=== PATIENT | female | born 1955 | race Caucasian/White ===

== ENCOUNTER 2017-03-14 12:17 | Day surgery (SDC) | payer BC ==
[2017-03-10 14:45] VITALS: BMI 40.8
[~2017-03-14 12:17] MED LIST: DEXAMETHASONE SOD PHOSPHATE 10 MG/ML 1 ML VIAL IV ONE; LACTATED RINGERS 1,000 ML IV SCH; MIDAZOLAM 2 MG/2 ML VIAL IV PRN; ONDANSETRON 4 MG/2 ML VIAL IVP ONE; SCOPOLAMINE 1.5MG/72HR PATCH TRANSDERM ONE; ceFAZolin 2 GM in SODIUM CHLORIDE 0.9% 100 ML IVPB ONE
[2017-03-14 12:43] VITALS: RESP 16
[2017-03-14] MEDS ORDERED: LIDOCAINE 1% 20 ML VIAL (10MG/ML) FOR IV START INTRADERMA ONE (12:55)
[2017-03-14] MEDS ORDERED: HYDROmorphone 1 MG/ML 1 ML SYRINGE IVP PRN ×2 (13:34)
[2017-03-14] MEDS ORDERED: HYDROcodone/APAP 5-325MG 1 EACH TAB PO PRN ×2 (13:34)
[2017-03-14] MEDS ORDERED: fentaNYL (PF) 50 MCG/ML 2 ML AMP ONE (13:43)
[2017-03-14] MEDS ORDERED: HYDROmorphone (PF) 1 MG/ML ONE (13:43)
[2017-03-14] MEDS ORDERED: LIDOCAINE 1% INJ 10MG/ML (20 ML MDV) ONE (13:43)
[2017-03-14] MEDS ORDERED: KETOROLAC 30 MG/ML 1 ML VIAL ONE (13:43)
[2017-03-14] MEDS ORDERED: MIDAZOLAM 2 MG/2 ML VIAL ONE (13:43)
[2017-03-14] MEDS ORDERED: PROPOFOL 10 MG/ML 20 ML VIAL IV ONE (13:43)
[2017-03-14] MEDS ORDERED: ceFAZolin 1,000 MG in SODIUM CHLORIDE 0.9% 1,000 ML IRRIGATION ONE (13:59)
[2017-03-14] MEDS ORDERED: BUPIVACAINE (PF) 0.5% 30 ML VIAL SQ ONE ×2 (14:03→14:21)
[2017-03-14] MEDS ORDERED: LACTATED RINGERS 1,000 ML IV ONE (14:18)
--- NOTE | 2017-03-14 14:28 | FL ---
Fluoroscopy HISTORY: Bone spur removal 2 seconds fluoroscopy time supplied to the referring clinician. 2 intraoperative C-arm images docume nt the procedure. See dictated report from orthopedic surgery.
[2017-03-14 14:39] VITALS: TEMP 95
--- NOTE | 2017-03-14 14:48 | P.OP ---
Date of Procedure: 03/14/17 Preoperative Diagnosis: Left hallux rigidus Postoperative Diagnosis: Left hallux rigidus Procedure(s) Performed: Left first MTP cheilectomy Implants: Anesthesia: JAK Surgeon: Galo Peter Estimated Blood Loss (ml): 5 IV fluids (ml): 900 Pathology: none sent Condition: stable Disposition: PACU Indications for Procedure: The patient is a previously healthy 61-year-old female with a long-standing history of problems in her left big toe. She saw me in the office to discuss treatment. Clinically she had a large dorsal osteophyte off of the distal first metatarsal and pain only with passive dorsiflexion and plantarflexion. She had no pain in the mid range of motion. We discussed continued conservative treatment versus surgery with a cheilectomy. The patient requested surgery. My recommendation is to perform a cheilectomy. We discussed the potential risks and competition of surgery including but not limited to risk of anesthesia, risk of superficial infection, risk of deep infection, risk of delayed wound healing, risk of damage to local sensory nerves resulting in temporary or permanent numbness, risk of intraoperative or postoperative fracture, risk of progression of arthritis, risk of stiffness, risk of continued pain, risk of chronic swelling, risk of need for further surgery, and generalized dissatisfaction with surgery and possibly the need for a fusion down the road. We also discussed potential complication of DVT or fatal PE. The patient understands these potential complications and provided her verbal and written consent to go forward with surgery. Operative Findings: Description of Procedure: The patient was met in preoperative holding and the correct left leg was marked with my initials. Every the consent form with the patient and her . The patient was then brought back to the operating room by anesthesia. She's position on the operating table and a general anesthetic was administered. A tourniquet was applied proximal aspect the left thigh. The patient's left leg was then prepped and draped in the standard sterile fashion. Prior to starting surgery timeout was performed identifying the correct patient, operative extremity, and procedure. The patient's leg was then elevated, exsanguinated with an Esmarch bandage and the tourniquet was inflated to 250 mmHg. Next I began by marking out a longitudinal incision centered over the dorsal aspect of the first MTP joint. Skin incision was made with 15 blade scalpel dissection was carried down carefully to the EHL tendon sheath. The child tendon sheath was incised and the EHL was retracted laterally. The capsule was incised longitudinally in line with the skin incision. I circumferentially exposed the MTP joint. On inspection of the joint there was a large dorsal osteophyte off of the first metatarsal head. There are also multiple loose bodies within the joint. Modified baby Hohmann retractors were placed exposing the joint and a microsagittal saw was used to remove the dorsal 25% of the first metatarsal head and the dorsal osteophyte. A Andry was used to remove peripheral osteophytes. The first metatarsal head was smoothed down with a rasp. On inspection of the joint there was full-thickness cartilage loss of the dorsal half of the first metatarsal head. C-arm was then brought in to verify decompression of the dorsal osteophyte. The wound was then copiously irrigated. The capsule was closed with a running 0 Vicryl stitch. The deep subcu was reapproximated using 3-0 Monocryl. The skin was closed using 3-0 nylon horizontal mattress stitches. I verified that all instrument, sponge, and sharp counts were correct. Brown Jhon and stretchy Steri-Strips were placed between the incisions and a sterile dressing consisting of Betadine soaked Adaptic and 4 x 4's placed. Prior to placing the dressing 10 mL's of half percent Marcaine was injected around the incision. The drapes were taken down and the patient was placed in a postoperative shoe. She was brought to PACU having tied of the procedure well. Plan: The patient discharged home as an outpatient. She can change her dressing in 2 days. She is to heel weight-bear only in a postoperative shoe
--- NOTE | 2017-03-14 14:51 | XR ---
Fluoroscopy HISTORY: Bone spur removal 2 seconds fluoroscopy time supplied to the referring clinician. 2 intraoperative C-arm images docume nt the procedure, paper films scanned into the documents section. Frontal and lateral fluoroscopic im ages were obtained intraoperatively during a bone spur removal. See dictated report from orthopedic s urgery.
[2017-03-14] MEDS: HYDROmorphone 1 MG/ML 1 ML SYRINGE IVP PRN ×2 (15:00→15:05)
[2017-03-14] MEDS ORDERED: ONDANSETRON 4 MG/2 ML VIAL IVP ONE (15:11)
[2017-03-14 16:17] VITALS: BP 122/76; PULSE 66
== END 2017-03-14 17:31 | disposition home or self-care (01) ==
LOC: OR 12:17
PROVIDERS: ATTEND Orthopaedic Surgery
DX: M20.22 Hallux rigidus, left foot (principal); I10 Essential (primary) hypertension; E78.5 Hyperlipidemia, unspecified; E03.9 Hypothyroidism, unspecified; J45.909 Unspecified asthma, uncomplicated; F32.9 Major depressive disorder, single episode, unspecified; Z88.2 Allergy status to sulfonamides; Z87.891 Personal history of nicotine dependence; Z79.51 Long term (current) use of inhaled steroids; Z79.899 Other long term (current) drug therapy; Z90.710 Acquired absence of both cervix and uterus
CPT/HCPCS: 73620; 28289; J2250; J1100; J0690 ×2; J2405; J2001; J3010; J1885; J1170; J2704

== ENCOUNTER → 2017-07-22 | Outpatient (CLI) | payer BC ==
--- NOTE | 2017-07-22 22:36 | CT ---
EXAMINATION TYPE: CT abdomen w con DATE OF EXAM: 07/22/2017 HISTORY: Lump and swelling to epigastric area. CT DLP: 1209.7mGycm Automated Exposure Control for Dose Reduction was Utilized. CONTRAST: CT scan of the abdomen is performed with oral and with IV Contrast, patient injected with 100 mL of O mnipaque 300. COMPARISON: CT abdomen and pelvis August 07, 2006. Complete abdominal ultrasound July 11, 2017. FINDINGS: LUNG BASES: No significant abnormality is appreciated. LIVER/GB: Liver is diffusely low-density consistent with fatty infiltration which correlates with rec ent ultrasound. Contracted gallbladder is seen. PANCREAS: No significant abnormality is seen. SPLEEN: No significant abnormality is seen. ADRENALS: No significant abnormality is seen. KIDNEYS: No significant abnormality is seen. BOWEL: Oral contrast does not reach colonic level. There is no suspicious small or large bowel dilata tion. LYMPH NODES: No greater than 1cm abdominal lymph nodes are appreciated. OSSEOUS STRUCTURES: There is prominent Schmorl node superior L1 endplate. OTHER: No significant additional abnormality is seen. IMPRESSION: No ascites is seen. No suspicious intra-abdominal mass or adenopathy is identified.
== END | disposition home or self-care (01) ==
LOC: RADCTMAIN 18:49
PROVIDERS: ATTEND Surgery
DX: R10.13 Epigastric pain (principal)
CPT/HCPCS: 74160; Q9967

== ENCOUNTER 2017-09-19 12:27 | Day surgery (SDC) | payer BC ==
[2017-09-16 11:50] VITALS: BMI 42.3
[~2017-09-19 12:27] MED LIST changes: -DEXAMETHASONE SOD PHOSPHATE 10 MG/ML 1 ML VIAL IV ONE; -MIDAZOLAM 2 MG/2 ML VIAL IV PRN; -ONDANSETRON 4 MG/2 ML VIAL IVP ONE; -SCOPOLAMINE 1.5MG/72HR PATCH TRANSDERM ONE; -ceFAZolin 2 GM in SODIUM CHLORIDE 0.9% 100 ML IVPB ONE
[2017-09-19 12:57] VITALS: RESP 16; TEMP 96.8
[2017-09-19] MEDS ORDERED: PROPOFOL 10 MG/ML 20 ML VIAL IV ONE (14:35)
[2017-09-19] MEDS ORDERED: LIDOCAINE 1% INJ 10MG/ML (20 ML MDV) ONE (14:35)
--- NOTE | 2017-09-19 14:40 | P.GSHP ---
History of Present Illness H&P Date: 09/19/17 Chief Complaint: Abdominal pain Patient here today for upper endoscopy. Has had complaints of epigastric and left subxiphoid pain off and on. Some reflux and nausea times as well. Recent CAT scan showed no definite abnormalities with the exception of a bifurcated xiphoid Past Medical History Past Medical History: Asthma, Hyperlipidemia, Hypertension, Thyroid Disorder Additional Past Medical History / Comment(s): migraines, varicose veins History of Any Multi-Drug Resistant Organisms: None Reported Past Surgical History: Adenoidectomy, Section, Hysterectomy, Orthopedic Surgery, Tonsillectomy Additional Past Surgical History / Comment(s): Exploratory laparotomy/xiomara oophorectomy, trigger thumb-rt hand, temporal biopsy, Past Anesthesia/Blood Transfusion Reactions: Motion Sickness Additional Past Anesthesia/Blood Transfusion Reaction / Comment(s): . Smoking Status: Former smoker - Past Family History Father Family Medical History: Coronary Artery Disease (CAD), Myocardial Infarction (HI ) Additional Family Medical History / Comment(s): Father of a HI Mother Family Medical History: No Reported History Additional Family Medical History / Comment(s): Mother is . Medications and Allergies Home Medications Medication Instructions Recorded Confirmed Type Budesonide/Formoterol Fumarate 2 puff INHALATION BID 03/10/17 09/19/17 History [Symbicort 80-4.5 Mcg Inhaler] Cetirizine HCl [Zyrtec] 10 mg PO DAILY 03/10/17 09/19/17 History Levothyroxine Sodium [Synthroid] 100 mcg PO QAM 03/10/17 09/16/17 History Montelukast [Singulair] 10 mg PO HS 03/10/17 09/19/17 History Naproxen [Naprosyn] 500 mg PO Q12HR 03/10/17 09/16/17 History amLODIPine BESYLATE/BENAZEPRIL 1 cap PO QAM 03/10/17 09/16/17 History [Lotrel 5-10 mg Capsule] Allergies Allergy/AdvReac Type Severity Reaction Status Date / Time sulfamethoxazole Allergy Rash/Hives Verified 09/19/17 12:51 [From Bactrim] trimethoprim [From Bactrim] Allergy Rash/Hives Verified 09/19/17 12:51 Surgical - Exam Vital Signs Temp Pulse Resp BP Pulse Ox 96.8 F L 82 16 126/71 98 09/19/17 12:56 09/19/17 12:56 09/19/17 12:56 09/19/17 12:56 09/19/17 12:56 Physical exam: General: Well-developed, well-nourished HEENT: Normocephalic, sclerae nonicteric Abdomen: Nontender, nondistended Extremities: No edema Neuro: Alert and oriented Assessment and Plan (1) Epigastric abdominal pain Narrative/Plan: Will proceed with upper endoscopy at this time. Current Visit: Yes Status: Acute Code(s): R10.13 - EPIGASTRIC PAIN SNOMED Code(s): 28568721
--- NOTE | 2017-09-19 14:49 | P.PCN ---
Date of Procedure: 09/19/17 Procedure(s) Performed: Preoperative Dx: Abdominal pain Postoperative Dx: Duodenitis with small ulceration, gastritis with small erosions Procedure: EGD with Bx Anesthesia: Sedation Endoscopist: Dr. Bruce Specimens: Duodenum, antrum Endoscopic Procedure: The patient was on the endoscopy table in the left decubitus position. The Olympus gastroscope was inserted into the oropharynx and passed under direct visualization to the region of the third portion of the duodenum. From that point the scope was slowly withdrawn inspecting all surfaces carefully. There was mild duodenitis present. Between the first and second portion of the duodenum a small superficial ulceration was identified. The pylorus was widely patent. There was diffuse gastritis present with small erosions. Retroflexion revealed a normal hiatus. The esophagus was then carefully examined. There were no neoplastic inflammatory or polypoid lesions throughout the visualized esophagus. The patient was then taken to the recovery room in stable condition per anesthesia guidelines. Recommendations: Await biopsy results. Begin antiacid therapy. Minimize NSAID use
[2017-09-19 15:07] VITALS: BP 105/58; PULSE 72
== END 2017-09-19 15:22 | disposition home or self-care (01) ==
LOC: ORWHC2ENDO 12:27
PROVIDERS: ATTEND Surgery
DX: K29.80 Duodenitis without bleeding (principal); K29.50 Unspecified chronic gastritis without bleeding; K25.9 Gastric ulcer, unspecified as acute or chronic, without hemorrhage or perforation; K26.9 Duodenal ulcer, unspecified as acute or chronic, without hemorrhage or perforation; J45.909 Unspecified asthma, uncomplicated; E78.5 Hyperlipidemia, unspecified; I10 Essential (primary) hypertension; E07.9 Disorder of thyroid, unspecified; G43.909 Migraine, unspecified, not intractable, without status migrainosus; G47.33 Obstructive sleep apnea (adult) (pediatric); E66.01 Morbid (severe) obesity due to excess calories; Z68.41 Body mass index [BMI] 40.0-44.9, adult; Z79.1 Long term (current) use of non-steroidal anti-inflammatories (NSAID); Z79.890 Hormone replacement therapy; Z79.51 Long term (current) use of inhaled steroids; Z79.899 Other long term (current) drug therapy; Z88.1 Allergy status to other antibiotic agents; Z88.2 Allergy status to sulfonamides; Z87.891 Personal history of nicotine dependence
CPT/HCPCS: 43239; J2001; J2704; 88305

== ENCOUNTER → 2018-03-16 | Outpatient (CLI) | payer BC ==
--- NOTE | 2018-03-17 13:52 | MM ---
Reason for exam: screening (asymptomatic). Last mammogram was performed 2 years ago. History: Patient is postmenopausal. Physical Findings: A clinical breast exam by your physician is recommended on an annual basis and results should be correlated with mammographic findings. MG 3D Screening Mammo W/Cad Bilateral CC and MLO view(s) were taken. Technologist: Britni Clement RT (R)(M) Prior study comparison: March 11, 2016, bilateral MG 3d screening mammo w/cad. No significant changes when compared with prior studies. ASSESSMENT: Benign, BI-RAD 2 RECOMMENDATION: Routine screening mammogram of both breasts in 1 year.
== END | disposition home or self-care (01) ==
LOC: RADMAMWWP 14:25
PROVIDERS: ATTEND Family Medicine
DX: Z12.31 Encounter for screening mammogram for malignant neoplasm of breast (principal)
CPT/HCPCS: 77063; 77067

== ENCOUNTER → 2018-09-29 | Outpatient (CLI) | payer OTHER ==
--- NOTE | 2018-09-29 16:41 | XR ---
PROCEDURE: XR wrist complete RT - 4V DATE AND TIME: 09/29/2018 4:32 PM CLINICAL INDICATION: Pain after injury TECHNIQUE: Department protocol COMPARISON: None FINDINGS: There is no fracture or malalignment. Prominent first CUSTODIAL degenerative joint changes are no rolly. The soft tissues are unremarkable. IMPRESSION: NO ACUTE PROCESS.
--- NOTE | 2018-09-29 16:43 | XR ---
PROCEDURE: XR hand complete RT - 3V DATE AND TIME: 09/29/2018 4:32 PM CLINICAL INDICATION: PHH; S00.03XA [id number] S60.211A S40.011A TECHNIQUE: Department protocol COMPARISON: None FINDINGS: There is no fracture or malalignment. Prominent first LONG-TERM degenerative joint changes are no rolly. The soft tissues are unremarkable. IMPRESSION: NO ACUTE PROCESS.
--- NOTE | 2018-09-29 16:45 | XR ---
PROCEDURE: XR shoulder complete RT - 3V DATE AND TIME: 09/29/2018 4:32 PM CLINICAL INDICATION: Pain after injury TECHNIQUE: Department protocol COMPARISON: None FINDINGS: There is no fracture or malalignment. Osteoarthritis changes are noted at the AC joint and glenohumeral joint. The soft tissues are unremarkable. IMPRESSION: NO ACUTE PROCESS.
--- NOTE | 2018-09-29 16:51 | XR ---
PROCEDURE: XR spine complete AP and Lat - 9V DATE AND TIME: 09/29/2018 4:34 PM CLINICAL INDICATION: Pain after injury TECHNIQUE: Department protocol 9 views COMPARISON: Cervical spine radiographs 09/19/2015, bone window images from the CT abdomen 07/22/2017. FINDINGS: There is no acute fracture or malalignment. There is seen L1 and L2 vertebral body superior endplate changes are similar in appearance. The paraspinal soft tissues are unremarkable. IMPRESSION: NO ACUTE PROCESS.
== END | disposition home or self-care (01) ==
LOC: RADXRMAIN 15:48
PROVIDERS: ATTEND Emergency Medicine
DX: S00.03XA Contusion of scalp, initial encounter (principal); S13.4XXA Sprain of ligaments of cervical spine, initial encounter; S13 Dislocation and sprain of joints and ligaments at neck level; S60.211A Contusion of right wrist, initial encounter; S60.221A Contusion of right hand, initial encounter; S40.011A Contusion of right shoulder, initial encounter
CPT/HCPCS: 72082

== ENCOUNTER → 2018-09-30 | Outpatient (CLI) | payer OTHER ==
--- NOTE | 2018-09-30 12:28 | CT ---
EXAMINATION TYPE: CT brain gogoine wo con DATE OF EXAM: 09/30/2018 COMPARISON: 12/29/2014 HISTORY: Headache and neck pain post fall. CT DLP: 1202 mGycm, Automated exposure control for dose reduction was used. CONTRAST: None CT of the brain is performed utilizing 3 mm thick sections through the posterior fossa and 3 mm thick sections through the remaining calvarium. Study is performed within 24 hours of arrival to the hospital. No abnormal hyperdensity is present to suggest an acute intracranial hemorrhage. No mass lesion is evident. No acute infarcts are evident. Ventricles and sulci are appropriate for the patient age. Paranasal sinuses and mastoid air cells within the [id number] are clear. IMPRESSIONS: 1. Normal CT brain. CT cervical spine. COMPARISON: None CT of the cervical spine is performed in the axial plane at 2 mm thick sections. Reconstructed image s in the coronal, and sagittal plane are reviewed on the computer. No acute fractures are evident. Vertebral body alignment is straightened Disc heights are preserved. Some mild central disc bulging may be present with mild anterior thecal s ac compression at C2-3, C4-5 and to the left paracentral region at C5-6. Vertebral body heights are preserved. No spinal canal stenosis is evident. Some mild uncovertebral joint hypertrophy is present on the right at C3-4 with minimal foraminal narr owing. Remaining foramen are patent. IMPRESSIONS: 1. No acute osseous abnormality cervical spine. 2. Suggestion of mild disc bulging C3-3, C4-5 centrally and left paracentral region at C5-6 with mild sac impression.
== END | disposition home or self-care (01) ==
LOC: RADCTMAIN 11:40
PROVIDERS: ATTEND Emergency Medicine
DX: S13.4XXD Sprain of ligaments of cervical spine, subsequent encounter (principal); S00.03XD Contusion of scalp, subsequent encounter
CPT/HCPCS: 70450; 72125

== ENCOUNTER → 2018-10-06 | Outpatient (CLI) | payer OTHER ==
--- NOTE | 2018-10-06 09:59 | XR ---
EXAMINATION TYPE: XR hand complete RT DATE OF EXAM: 10/06/2018 CLINICAL HISTORY: pain TECHNIQUE: Frontal, lateral and oblique images of the right hand are obtained. COMPARISON: None. FINDINGS: There is no acute fracture/dislocation evident. Mild degenerative narrowing scattered PIP joints. The overlying soft tissue appears unremarkable. IMPRESSION: There is no acute fracture or dislocation ICD 10 NO FRACTURE, INITIAL EVALUATION
--- NOTE | 2018-10-06 10:02 | XR ---
EXAMINATION TYPE: XR wrist complete RT DATE OF EXAM: 10/06/2018 CLINICAL HISTORY: pain TECHNIQUE: Frontal, lateral and oblique images of the right wrist are obtained. COMPARISON: None. FINDINGS: There is no acute fracture/dislocation evident. Moderate degenerative narrowing mild bony fragmentati on first carpal metacarpal joint space. The overlying soft tissue appears unremarkable. IMPRESSION: There is no acute fracture or dislocation seen. ICD 10 NO FRACTURE, INITIAL EVALUATION
== END | disposition home or self-care (01) ==
LOC: RADXRMAIN 09:23
PROVIDERS: ATTEND Emergency Medicine
DX: S60.211D Contusion of right wrist, subsequent encounter (principal); S60.221D Contusion of right hand, subsequent encounter; M25.531 Pain in right wrist; M79.641 Pain in right hand

== ENCOUNTER → 2019-09-27 | Outpatient (CLI) | payer OTHER ==
--- NOTE | 2019-09-28 08:47 | XR ---
EXAMINATION TYPE: XR shoulder complete LT DATE OF EXAM: 09/27/2019 COMPARISON: NONE HISTORY: Pain TECHNIQUE: Shoulder examined in 2 views FINDINGS: The humeral head articulates with the glenoid. The acromio-clavicular junction is normal. No acute fractures or dislocations are evident. A follow up study can be performed 7-10 days from acute trauma for continued pain. IMPRESSION: 1. Normal Shoulder
== END | disposition home or self-care (01) ==
LOC: RAD 16:05
PROVIDERS: ATTEND Family Medicine
DX: M25.512 Pain in left shoulder (principal)

== ENCOUNTER → 2019-12-21 | Outpatient (CLI) | payer BC ==
--- NOTE | 2019-12-21 16:29 | MR ---
MRI CERVICAL SPINE: CLINICAL HISTORY: Headaches with neck pain and stiffness causing bilateral ME weakness TECHNIQUE: Multiplanar, multisequence imaging of the cervical spine is performed without IV contrast. COMPARISON: CT cervical spine September 30, 2018. Prior MRI cervical spine September 13, 2013 FINDINGS: Coronal images show persistent slight levoconvex scoliotic curvature centered mid cervical spine. Sagittal images of the cervical spine show the craniocervical junction to remained within norm al limits. The cervical and upper thoracic spinal cord remains normal in course, caliber, and signal . Vertebral alignment is stable and satisfactory. The vertebral body and intravertebral disk height s remained normal. The bone marrow signal intensity remains within normal limits. Axial images shows the C2-C3 level to remain within normal limits. Axial images at C3-C4 level show right-sided uncovertebral facet degenerative changes and marginal sp urring causing asymmetric mild to moderate right-sided neural foraminal narrowing. No significant ajit nge from recent CT. Axial images at C4-C5 level remain within normal limits. Axial images at C5-C6 level show posterior disc herniation mildly effacing anterior thecal sac and ca using mild bilateral neural foraminal narrowing. Findings are new from prior MRI. Axial images at C6-C7 level redemonstrate tiny central disc protrusion minimally effacing the anterio r thecal sac, bilateral neural foramina are patent. No significant change from prior MRI. Axial images at C7-T1 level remain within normal limits. IMPRESSION: Some new mild degenerative changes C5-C6 level. Other findings show no significant progre ssion from prior CT or MRI. No large disc herniation to account for patient's radiculopathy type symp toms noted.
--- NOTE | 2019-12-21 16:47 | MR ---
EXAMINATION TYPE: MR shoulder LT wo con DATE OF EXAM: 12/21/2019 COMPARISON: Left shoulder x-ray September 27, 2019 HISTORY: Lt shoulder pain, decreased ROM x 6 months, no trauma TECHNIQUE: Multiplanar, multisequence imaging of the left shoulder is performed without contrast. FINDINGS: Rotator Cuff: Some increased signal distal supraspinatus tendon with focal tear articular surface karin suring roughly 8 mm AP diameter sagittal image 9 and 6 mm transversely coronal image 8 involving ante rior half of fibers. Infraspinatus tendon shows increased signal at articular surface without tear. S ubscapularis tendon intact axial image 13. Rotator cuff muscle bulk preserved. Acromioclavicular Joint: Moderate narrowing and moderate to severe capsular hypertrophy with loss of underlying fat plane and coronal images, correlate for underlying impingement. Distal acromion morpho logy unremarkable. Glenohumeral Joint: Small to moderate size glenohumeral joint effusion with mild to moderate narrowin g. No significant spurring. Labrum: The labrum appears grossly intact given limitation of non-arthrogram study. Biceps Tendon: The long head of biceps is in normal location within bicipital groove. Focal increased signal intracapsular portion near biceps anchor sagittal image 17 and coronal image 10 noted. Bone marrow signal: Some tiny subchondral cystic change superior lateral head near greater tuberosity noted. Other: No additional significant abnormality is appreciated. IMPRESSION: 1. Partial tear/tendinosis at articular surface distal supraspinatus tendon. Less prominent tendinosi s distal infraspinatus tendon. 2. Focal tear/tendinosis intracapsular portion long head of biceps tendon near biceps anchor. 3. Moderate degenerative changes with suggestion of underlying impingement as detailed above.
== END | disposition home or self-care (01) ==
LOC: RADMRIMAIN 14:52
PROVIDERS: ATTEND Family Medicine
DX: M47.892 Other spondylosis, cervical region (principal); M75.102 Unspecified rotator cuff tear or rupture of left shoulder, not specified as traumatic; S46.112A Strain of muscle, fascia and tendon of long head of biceps, left arm, initial encounter
CPT/HCPCS: 72141

== ENCOUNTER 2020-01-04 19:59 | Emergency (ER) | payer BC, OTHER ==
[2020-01-04 20:03] VITALS: TEMP 98
[2020-01-04] MEDS ORDERED: SODIUM CHLORIDE 0.9% 500 ML 500 ML IV STA (20:20)
[2020-01-04] MEDS ORDERED: SODIUM CHLORIDE 0.9% 1,000 ML IV STA (20:20)
[2020-01-04] MEDS ORDERED: ORPHENADRINE 30 MG/ML 2 ML VIAL IVP STA (20:21)
[2020-01-04] MEDS ORDERED: KETOROLAC 30 MG/ML 1 ML VIAL IVP STA (20:21)
[2020-01-04 20:31] LABS: Basophils % (A) 0 %; Eosinophils # (A) 0.3 k/uL (0-0.7); Eosinophils % (A) 2 %; HCT 39.2 % (34.0-46.0); HGB 12.9 gm/dL (11.4-16.0); Lymphocytes # (A) 4.7 k/uL (1.0-4.8); Lymphocytes % (A) 36 %; MCH 29.6 pg (25.0-35.0); MCV 89.7 fL (80.0-100.0); Mean Platelet Volume 8.9; Monocytes # (A) 0.4 k/uL (0-1.0); Monocytes % (A) 3 %; Neutrophils # (A) 7.5 k/uL (1.3-7.7); Neutrophils % (A) 57 %; Platelet Count 398 k/uL (150-450); RBC 4.37 m/uL (3.80-5.40); RDW 14.3 % (11.5-15.5); WBC 13.1 k/uL (3.8-10.6)
[2020-01-04 20:40] LABS: INR 0.9 (<1.2); Prothrombin Time 9.7 sec (9.0-12.0)
[2020-01-04 20:55] LABS: ALT 33 U/L (4-34); AST 33 U/L (14-36); African American GFR (CKD) >90 (>60 ml/min/1.73 sqM); Alkaline Phosphatase 85 U/L (38-126); Anion Gap 12 mmol/L; Blood Urea Nitrogen 12 mg/dL (7-17); Calcium 10.3 mg/dL (8.4-10.2); Carbon Dioxide 26 mmol/L (22-30); Chloride 103 mmol/L (98-107); Creatine Kinase 105 U/L (30-135); Glucose 139 mg/dL (74-99); Magnesium 1.7 mg/dL (1.6-2.3); Non-African American GFR(CKD) >90 (>60 ml/min/1.73 sqM); Potassium 4.1 mmol/L (3.5-5.1); Sodium 141 mmol/L (137-145); Total Bilirubin 0.2 mg/dL (0.2-1.3); Total Protein 7.9 g/dL (6.3-8.2)
--- NOTE | 2020-01-04 20:55 | XR ---
EXAMINATION TYPE: XR chest 2V DATE OF EXAM: 01/04/2020 COMPARISON: 03/29/2015 HISTORY: Chest pain TECHNIQUE: FINDINGS: Heart and mediastinum are normal. Lungs are clear. There is no pleural effusion. Bony thora x is intact. Pulmonary vascularity is normal. IMPRESSION: No active cardiopulmonary disease. Normal heart. No change.
[2020-01-04] MEDS ORDERED: fentaNYL (PF) 50 MCG/ML 2 ML AMP IVP STA (20:56)
[2020-01-04 21:07] VITALS: RESP 18
--- NOTE | 2020-01-04 21:11 | ED ---
Chest Pain HPI - General Chief Complaint: Chest Pain Stated Complaint: Chest Pain Time Seen by Provider: 01/04/20 20:06 Source: patient, family, RN notes reviewed Mode of arrival: ambulatory Limitations: no limitations - History of Present Illness Initial Comments: This is a 64-year-old female with a benign history with respect to heart or lung issues were abdominal disease who had the onset several hours ago severe sharp left upper quadrant left anterior chest wall pain. She states it was in spasms. He states is very severe 10/10 in severity she also had some pain to the left neck area. No heavy lifting no trauma reported she apparently has been having pain recently. Reports will occur and her maladies no trauma no fevers chills nausea vomiting sweats no cough or phlegm production no other modifying factors at this time MD Complaint: chest pain - Related Data Home Medications Medication Instructions Recorded Confirmed Cetirizine HCl [Zyrtec] 10 mg PO HS 03/10/17 01/04/20 Levothyroxine Sodium [Synthroid] 100 mcg PO QAM 03/10/17 01/04/20 Montelukast [Singulair] 10 mg PO HS 03/10/17 01/04/20 amLODIPine BESYLATE/BENAZEPRIL 1 cap PO QAM 03/10/17 01/04/20 [Lotrel 5-10 mg Capsule] Aspirin EC [Ecotrin Low Dose] 324 mg PO ONCE PRN 01/04/20 01/04/20 Baclofen [Lioresal] 10 mg PO HS PRN 01/04/20 01/04/20 Multivitamins, Thera [Multivitamin 1 tab PO DAILY 01/04/20 01/04/20 (formulary)] metFORMIN HCL [Glucophage] 500 mg PO HS 01/04/20 01/04/20 Previous Rx's Medication Instructions Recorded Ibuprofen 800 mg PO Q6HR PRN #20 tablet 01/04/20 Allergies Allergy/AdvReac Type Severity Reaction Status Date / Time sulfamethoxazole Allergy Rash/Hives Verified 01/04/20 20:37 [From Bactrim] trimethoprim [From Bactrim] Allergy Rash/Hives Verified 01/04/20 20:37 Review of Systems ROS Statement: Those systems with pertinent positive or pertinent negative responses have been documented in the HPI. ROS Other: All systems not noted in ROS Statement are negative. Past Medical History Past Medical History: Asthma, Hyperlipidemia, Hypertension, Thyroid Disorder Additional Past Medical History / Comment(s): migraines, varicose veins, History of Any Multi-Drug Resistant Organisms: None Reported Past Surgical History: Adenoidectomy, Section, Hysterectomy, Orthopedic Surgery, Tonsillectomy Additional Past Surgical History / Comment(s): Exploratory laparotomy/xiomara ooph orectomy, trigger thumb-rt hand, temporal biopsy, Past Anesthesia/Blood Transfusion Reactions: Motion Sickness Additional Past Anesthesia/Blood Transfusion Reaction / Comment(s): . Past Psychological History: No Psychological Hx Reported Smoking Status: Former smoker Past Alcohol Use History: None Reported Past Drug Use History: None Reported - Past Family History Father Family Medical History: Coronary Artery Disease (CAD), Myocardial Infarction ([place]) Additional Family Medical History / Comment(s): Father of a [place] Mother Family Medical History: No Reported History Additional Family Medical History / Comment(s): Mother is . General Exam - General Exam Comments Initial Comments: This is a well-developed well-nourished awake alert oriented 3 female Limitations: no limitations General appearance: alert, anxious, in distress Head exam: Present: atraumatic, normocephalic, normal inspection Eye exam: Present: normal appearance, PERRL, EOMI. Absent: scleral icterus, conjunctival injection, periorbital swelling ENT exam: Present: normal exam, mucous membranes moist Neck exam: Present: normal inspection, tenderness, full ROM, other (Facial lateral aspect of the wrist). Absent: meningismus, lymphadenopathy Respiratory exam: Present: normal lung sounds bilaterally. Absent: respiratory distress, wheezes, rales, rhonchi, stridor Cardiovascular Exam: Present: normal rhythm, tachycardia, normal heart sounds. Absent: systolic murmur, diastolic murmur, rubs, gallop, clicks GI/Abdominal exam: Present: soft, normal bowel sounds. Absent: distended, tenderness, guarding, rebound, rigid, bruit, pulsatile mass Extremities exam: Present: normal inspection, full ROM, normal capillary refill. Absent: tenderness, pedal edema, joint swelling, calf tenderness Back exam: Present: normal inspection Neurological exam: Present: alert, oriented X3, CN II-XII intact Psychiatric exam: Present: normal affect, normal mood Skin exam: Present: warm, dry, intact, normal color. Absent: rash Course Vital Signs 01/04/20 01/04/20 01/04/20 20:00 20:11 20:30 Temperature 98.0 F Pulse Rate 127 H 115 H Pulse Rate [ 111 H Assurance [employer] ] Respiratory 22 24 Rate Blood Pressure 188/78 199/98 O2 Sat by Pulse 97 98 Oximetry 01/04/20 01/04/20 01/04/20 20:55 21:06 21:37 Temperature Pulse Rate 103 H 103 H 88 Pulse Rate [ Assurance [employer] ] Respiratory 22 18 18 Rate Blood Pressure 176/85 165/91 147/84 O2 Sat by Pulse 98 96 98 Oximetry Chest Pain MDM - MDM I did review the imaging and report no acute findings. Patient initially did not get relief from the initial pain medication she takes from the second. It later became nausea she did cut her lawn last couple days using a push lawn more. He was sitting at her desk when the pain started. Pain was reproducible with palpation along the costal sternal margin on the left and the interosseous musculature. Disposition Clinical Impression: Costochondritis, Chest wall syndrome Disposition: HOME SELF-CARE Condition: Good Instructions (If sedation given, give patient instructions): Costochondritis (ED) Additional Instructions: Ibuprofen prescription sent to your preferred pharmacy Prescriptions: Ibuprofen 800 mg PO Q6HR PRN #20 tablet PRN Reason: Pain Is patient prescribed a controlled substance at d/c from ED?: No Referrals: Frederick Zuñiga DO [Primary Care Provider] - 1-2 days
[2020-01-04 22:26] VITALS: BP 138/87; PULSE 80
== END 2020-01-04 22:30 | disposition home or self-care (01) ==
LOC: EC 19:59
DX: M94.0 Chondrocostal junction syndrome [Tietze] (principal); R10.12 Left upper quadrant pain; M54.2 Cervicalgia; R11.0 Nausea; J45.909 Unspecified asthma, uncomplicated; I10 Essential (primary) hypertension; E07.9 Disorder of thyroid, unspecified; Z87.891 Personal history of nicotine dependence; Z82.49 Family history of ischemic heart disease and other diseases of the circulatory system; Z90.710 Acquired absence of both cervix and uterus; Z90.722 Acquired absence of ovaries, bilateral; Z79.890 Hormone replacement therapy; Z79.84 Long term (current) use of oral hypoglycemic drugs; Z79.899 Other long term (current) drug therapy; Z88.2 Allergy status to sulfonamides
CPT/HCPCS: 99285; 96374; 96375 ×2; 96361 ×2; 36415; 93005; 80053; 82550; 83690; 83735; 84484; 85025; 85610; 85730; 71046; J2360; J3010; J1885

== ENCOUNTER → 2020-02-14 | Outpatient (CLI) | payer BC ==
--- NOTE | 2020-02-14 16:06 | BD ---
EXAMINATION TYPE: Axial Bone Density DATE OF EXAM: 02/14/2020 COMPARISON: NONE CLINICAL HISTORY: Postmenopausal without hormonal replacement therapy Height: 60.7 IN Weight: 216 LBS FRAX RISK QUESTIONS: History of Fracture in Adulthood: YES FINGER AGE 60 Secondary Osteoporosis: 3. Menopause before 45: TOTAL HYST AGE 33 RISK FACTORS HISTORY OF: Spine Fracture: YES L-2-L5 When: AGE 41 Active: YES Diet low in dairy products/other sources of calcium: YES Postmenopausal woman: TOTAL HYST AGE 33 MEDICATIONS: Thyroid Medications: YES Which medication: Levothyroxine How Lon YEARS Additional Medications: VIT D, MULTI VIT,LEVOTHYROXINE, BLOOD PRESSURE MEDS, SINGULAR EXAM MEASUREMENTS: Bone mineral densitometry was performed using the Param[employer] Sound System. L-SPINE FX AGE 41 Bone mineral density about the R hip (g/cm2): 1.009 Bone mineral density about the L hip (g/cm2): 0.969 T Score values are as follows: -----R Neck: -0.2 -----L Neck: -0.5 -----R Total: 0.8 -----L Total: 0.7 Bone mineral density BASELINE Bone mineral density about the L Wrist (g/cm2): 0.701 T Score values are as follows: -----Dist. R+U: 0.0 -----Prox. R+U: 0.5 -----Radius total: 0.4 Bone mineral density BASELINE IMPRESSION: Normal (Values between +1 and -1 indicate normal bone mass). Consider repeating this study in 5 year s or sooner if there is some new clinical indication. NOTE: T-SCORE=SD OF THE YOUNG ADULT MEAN.
--- NOTE | 2020-02-15 10:31 | MM ---
Reason for exam: screening (asymptomatic). Last mammogram was performed 1 year and 11 months ago. History: Patient is postmenopausal. Physical Findings: A clinical breast exam by your physician is recommended on an annual basis and results should be correlated with mammographic findings. MG 3D Screening Mammo W/Cad Bilateral CC and MLO view(s) were taken. Prior study comparison: March 16, 2018, bilateral MG 3d screening mammo w/cad. March 11, 2016, bilateral MG 3d screening mammo w/cad. The breast tissue is heterogeneously dense. This may lower the sensitivity of mammography. No significant changes when compared with prior studies. ASSESSMENT: Negative, BI-RAD 1 RECOMMENDATION: Routine screening mammogram of both breasts in 1 year.
== END | disposition home or self-care (01) ==
LOC: RADMAMWWP 12:59
PROVIDERS: ATTEND Family Medicine
DX: Z12.31 Encounter for screening mammogram for malignant neoplasm of breast (principal); Z78.0 Asymptomatic menopausal state
CPT/HCPCS: 77063; 77067; 77080

== ENCOUNTER 2020-12-21 08:14 | Observation (INO) | payer BC ==
[2020-12-21] MEDS ORDERED: PANTOPRAZOLE 40 MG/10 ML VIAL IVP STA (08:31)
[2020-12-21] MEDS ORDERED: SODIUM CHLORIDE 0.9% 1,000 ML IV STA (08:31)
[2020-12-21] MEDS ORDERED: HYDROmorphone 0.5 MG/0.5 ML SYRINGE IVP STA (08:31)
[2020-12-21] MEDS ORDERED: ONDANSETRON 4 MG/2 ML VIAL IVP STA (08:33)
--- NOTE | 2020-12-21 08:35 | ED ---
General Adult HPI - General Chief complaint: Back Pain/Injury Stated complaint: back pain Time Seen by Provider: 12/21/20 08:27 Source: patient, RN notes reviewed Mode of arrival: ambulatory Limitations: no limitations - History of Present Illness Initial comments: Patient is a pleasant 7 he 5-year-old female presenting to the emergency Department with complaints of back discomfort. Onset of symptoms was a couple of days ago. Patient has been fatigued. Patient has had chills however no fever. Discomfort is somewhat diffuse between the back. Patient also has some abdominal and chest discomfort. Discomfort is currently rated 8/10. Patient has nausea without vomiting. No constipation or diarrhea. Patient seen at her doctor's recently with concern for early urinary tract infection and started on antibiotic. Patient states the worst area of discomfort is left CVA region. - Related Data Home Medications Medication Instructions Recorded Confirmed Levothyroxine Sodium [Synthroid] 100 mcg PO DAILY 03/10/17 12/21/20 Montelukast [Singulair] 10 mg PO HS 03/10/17 12/21/20 amLODIPine BESYLATE/BENAZEPRIL 1 cap PO DAILY 03/10/17 12/21/20 [Lotrel 5-10 mg Capsule] metFORMIN HCL [Glucophage] 500 mg PO W/SUPPER 01/04/20 12/21/20 Atorvastatin [Lipitor] 40 mg PO HS 12/21/20 12/21/20 Nitrofurantoin Monohyd/M-Cryst 100 mg PO Q12HR 12/21/20 12/21/20 [Macrobid] Allergies Allergy/AdvReac Type Severity Reaction Status Date / Time sulfamethoxazole Allergy Rash/Hives Verified 12/21/20 10:48 [From Bactrim] trimethoprim [From Bactrim] Allergy Rash/Hives Verified 12/21/20 10:48 Review of Systems ROS Statement: Those systems with pertinent positive or pertinent negative responses have been documented in the HPI. ROS Other: All systems not noted in ROS Statement are negative. Constitutional: Reports: chills. Denies: fever Eyes: Denies: eye pain ENT: Denies: ear pain Respiratory: Denies: cough Cardiovascular: Reports: chest pain Endocrine: Reports: fatigue Gastrointestinal: Reports: abdominal pain, nausea. Denies: vomiting Genitourinary: Denies: dysuria Musculoskeletal: Reports: as per HPI, back pain Skin: Denies: rash Neurological: Denies: weakness Past Medical History Past Medical History: Asthma, Hyperlipidemia, Hypertension, Thyroid Disorder Additional Past Medical History / Comment(s): migraines, varicose veins, History of Any Multi-Drug Resistant Organisms: None Reported Past Surgical History: Adenoidectomy, Section, Hysterectomy, Orthopedic Surgery, Tonsillectomy Additional Past Surgical History / Comment(s): Exploratory laparotomy/xiomara oophorectomy, trigger thumb-rt hand, temporal biopsy, Past Anesthesia/Blood Transfusion Reactions: Motion Sickness Additional Past Anesthesia/Blood Transfusion Reaction / Comment(s): . Past Psychological History: No Psychological Hx Reported Smoking Status: Never smoker Past Alcohol Use History: None Reported Past Drug Use History: None Reported - Past Family History Father Family Medical History: Coronary Artery Disease (CAD), Myocardial Infarction ([place]) Additional Family Medical History / Comment(s): Father of a [place] Mother Family Medical History: No Reported History Additional Family Medical History / Comment(s): Mother is . General Exam Limitations: no limitations General appearance: alert, in no apparent distress Head exam: Present: atraumatic Eye exam: Present: normal appearance Neck exam: Present: normal inspection Respiratory exam: Present: normal lung sounds bilaterally. Absent: chest wall tenderness Cardiovascular Exam: Present: regular rate, normal rhythm Expanded Peripheral pulses: 2+: Radial (R), Radial (L), Dorsalis Pedis (R), Dorsalis Pedis (L) GI/Abdominal exam: Present: soft, tenderness (Mild left-sided tenderness to pal pation). Absent: distended, pulsatile mass Extremities exam: Present: normal inspection. Absent: pedal edema, calf tenderness Back exam: Present: CVA tenderness (L) Neurological exam: Present: alert Psychiatric exam: Present: normal affect, normal mood Skin exam: Present: normal color Course Vital Signs 12/21/20 12/21/20 12/21/20 08:23 08:50 09:25 Temperature 98.3 F Pulse Rate 119 H 105 H Respiratory 18 16 16 Rate Blood Pressure 171/83 154/85 O2 Sat by Pulse 99 95 95 Oximetry 12/21/20 10:25 Temperature Pulse Rate 100 Respiratory 16 Rate Blood Pressure 141/70 O2 Sat by Pulse 95 Oximetry EKG Findings - EKG Comments: EKG Findings:: Sinus tachycardia with rate of 118. IN 140. QRS 78. QT 312. QTC 437. Normal axis. Normal QRS. Nonspecific T waves. Medical Decision Making - Medical Decision Making Patient reevaluated and feels somewhat better with medications. Patient updated on results and plan. Case discussed with Dr. Zuñiga was familiar with this patient has he saw her yesterday. He will admit with repeat lab testing and requests stronger antibiotics - Lab Data Result diagrams: 12/21/20 08:50 12/21/20 08:50 Lab Results 12/21/20 12/21/20 12/21/20 Range/Units 08:50 08:50 08:50 WBC 24.0 H (3.8-10.6) k/uL RBC 4.79 (3.80-5.40) m/uL Hgb 13.2 (11.4-16.0) gm/dL Hct 41.5 (34.0-46.0) % MCV 86.7 (80.0-100.0) fL MCH 27.6 (25.0-35.0) pg MCHC 31.8 (31.0-37.0) g/dL RDW 14.4 (11.5-15.5) % Plt Count 373 (150-450) k/uL MPV 8.4 Neutrophils % 93 % Lymphocytes % 5 % Monocytes % 1 % Eosinophils % 1 % Basophils % 0 % Neutrophils # 22.2 H (1.3-7.7) k/uL Lymphocytes # 1.2 (1.0-4.8) k/uL Monocytes # 0.3 (0-1.0) k/uL Eosinophils # 0.3 (0-0.7) k/uL Basophils # 0.0 (0-0.2) k/uL PT 9.9 (9.0-12.0) sec INR 0.9 (<1.2) APTT 21.2 L (22.0-30.0) sec D-Dimer 0.58 (<0.60) mg/L FEU Sodium 139 (137-145) mmol/L Potassium 4.4 (3.5-5.1) mmol/L Chloride 101 (98-107) mmol/L Carbon Dioxide 28 (22-30) mmol/L Anion Gap 10 mmol/L BUN 13 (7-17) mg/dL Creatinine 0.80 (0.52-1.04) mg/dL Est GFR (CKD-EPI)AfAm >90 (>60 ml/min/1.73 sqM) Est GFR (CKD-EPI)NonAf 78 (>60 ml/min/1.73 sqM) Glucose 135 H (74-99) mg/dL Calcium 9.8 (8.4-10.2) mg/dL Total Bilirubin 0.8 (0.2-1.3) mg/dL AST 52 H (14-36) U/L ALT 40 H (4-34) U/L Alkaline Phosphatase 106 (38-126) U/L Troponin I (0.000-0.034) ng/mL Total Protein 7.5 (6.3-8.2) g/dL Albumin 4.9 (3.5-5.0) g/dL Amylase 58 (30-110) U/L Lipase 72 (23-300) U/L Urine Color Urine Appearance (Clear) Urine pH (5.0-8.0) Ur Specific [place] (1.001-1.035) Urine Protein (Negative) Urine Glucose (UA) (Negative) Urine Ketones (Negative) Urine Blood (Negative) Urine Nitrite (Negative) Urine Bilirubin (Negative) Urine Urobilinogen (<2.0) mg/dL Ur Leukocyte Esterase (Negative) Urine RBC (0-5) /hpf Urine WBC (0-5) /hpf Ur Squamous Epith Cells (0-4) /hpf 12/21/20 12/21/20 Range/Units 08:50 10:45 WBC (3.8-10.6) k/uL RBC (3.80-5.40) m/uL Hgb (11.4-16.0) gm/dL Hct (34.0-46.0) % MCV (80.0-100.0) fL MCH (25.0-35.0) pg MCHC (31.0-37.0) g/dL RDW (11.5-15.5) % Plt Count (150-450) k/uL MPV Neutrophils % % Lymphocytes % % Monocytes % % Eosinophils % % Basophils % % Neutrophils # (1.3-7.7) k/uL Lymphocytes # (1.0-4.8) k/uL Monocytes # (0-1.0) k/uL Eosinophils # (0-0.7) k/uL Basophils # (0-0.2) k/uL PT (9.0-12.0) sec INR (<1.2) APTT (22.0-30.0) sec D-Dimer (<0.60) mg/L FEU Sodium (137-145) mmol/L Potassium (3.5-5.1) mmol/L Chloride (98-107) mmol/L Carbon Dioxide (22-30) mmol/L Anion Gap mmol/L BUN (7-17) mg/dL Creatinine (0.52-1.04) mg/dL Est GFR (CKD-EPI)AfAm (>60 ml/min/1.73 sqM) Est GFR (CKD-EPI)NonAf (>60 ml/min/1.73 sqM) Glucose (74-99) mg/dL Calcium (8.4-10.2) mg/dL Total Bilirubin (0.2-1.3) mg/dL AST (14-36) U/L ALT (4-34) U/L Alkaline Phosphatase (38-126) U/L Troponin I <0.012 (0.000-0.034) ng/mL Total Protein (6.3-8.2) g/dL Albumin (3.5-5.0) g/dL Amylase (30-110) U/L Lipase (23-300) U/L Urine Color Yellow Urine Appearance Clear (Clear) Urine pH 6.0 (5.0-8.0) Ur Specific [place] 1.017 (1.001-1.035) Urine Protein Negative (Negative) Urine Glucose (UA) Negative (Negative) Urine Ketones Negative (Negative) Urine Blood Small H (Negative) Urine Nitrite Negative (Negative) Urine Bilirubin Negative (Negative) Urine Urobilinogen <2.0 (<2.0) mg/dL Ur Leukocyte Esterase Negative (Negative) Urine RBC 4 (0-5) /hpf Urine WBC <1 (0-5) /hpf Ur Squamous Epith Cells <1 (0-4) /hpf - Radiology Data Radiology results: image reviewed (Computed tomography scan abdomen pelvis reveals no acute process) Disposition Clinical Impression: Flank pain Disposition: ADMITTED IP TO THIS HOSP Is patient prescribed a controlled substance at d/c from ED?: No Referrals: Frederick Zuñiga DO [Primary Care Provider] - 1-2 days Decision Time: 11:59
[2020-12-21 09:10] LABS: Basophils % (A) 0 %; Eosinophils # (A) 0.3 k/uL (0-0.7); Eosinophils % (A) 1 %; HCT 41.5 % (34.0-46.0); HGB 13.2 gm/dL (11.4-16.0); Lymphocytes # (A) 1.2 k/uL (1.0-4.8); Lymphocytes % (A) 5 %; MCH 27.6 pg (25.0-35.0); MCHC 31.8 g/dL (31.0-37.0); MCV 86.7 fL (80.0-100.0); Mean Platelet Volume 8.4; Monocytes # (A) 0.3 k/uL (0-1.0); Monocytes % (A) 1 %; Neutrophils # (A) 22.2 k/uL (1.3-7.7); Neutrophils % (A) 93 %; Platelet Count 373 k/uL (150-450); RBC 4.79 m/uL (3.80-5.40); RDW 14.4 % (11.5-15.5)
--- NOTE | 2020-12-21 09:18 | XR ---
EXAMINATION TYPE: XR chest 2V DATE OF EXAM: 12/21/2020 COMPARISON: Chest x-ray January 04, 2020 HISTORY: New onset chest pain. TECHNIQUE: Frontal and lateral views of the chest are obtained. FINDINGS: Improved inspiration current study. There is no new suspicious focal air space opacity, ple ural effusion, or pneumothorax seen. The cardiac silhouette size is within normal limits. Overlying EKG leads redemonstrated. The osseous structures are intact. IMPRESSION: No acute cardiopulmonary process.
[2020-12-21 09:20] LABS: ALT 40 U/L (4-34); AST 52 U/L (14-36); African American GFR (CKD) >90 (>60 ml/min/1.73 sqM); Albumin 4.9 g/dL (3.5-5.0); Alkaline Phosphatase 106 U/L (38-126); Amylase 58 U/L (30-110); Anion Gap 10 mmol/L; Blood Urea Nitrogen 13 mg/dL (7-17); Calcium 9.8 mg/dL (8.4-10.2); Carbon Dioxide 28 mmol/L (22-30); Chloride 101 mmol/L (98-107); Glucose 135 mg/dL (74-99); Lipase 72 U/L (23-300); Non-African American GFR(CKD) 78 (>60 ml/min/1.73 sqM); Potassium 4.4 mmol/L (3.5-5.1); Sodium 139 mmol/L (137-145); Total Bilirubin 0.8 mg/dL (0.2-1.3); Total Protein 7.5 g/dL (6.3-8.2)
[2020-12-21 09:23] LABS: D-Dimer 0.58 mg/L FEU (<0.60); INR 0.9 (<1.2); Prothrombin Time 9.9 sec (9.0-12.0)
--- NOTE | 2020-12-21 09:33 | XR ---
EXAMINATION TYPE: XR KUB DATE OF EXAM: 12/21/2020 9:09 AM CLINICAL HISTORY: Abdominal pain. Antibiotic was started yesterday. New onset of chest pain. TECHNIQUE: AP upright views of the abdomen, 2 images. COMPARISON: None. FINDINGS: No free air on the upright views. Nonspecific, nonobstructive bowel gas pattern. No dilated loops of large or small bowel. Moderate stool and gas are seen throughout the colon and within the r ectum. Multiple presumed calcified pelvic phleboliths. Probable surgical clips in the left pelvis. No definite renal or ureteral calculi. Degenerative changes of the lower lumbar spine and hips. IMPRESSION: 1. Nonspecific, nonobstructive bowel gas pattern. 2. Multiple presumed pelvic phleboliths.
[2020-12-21 09:43] LABS: Partial Thromboplastin Time 21.2 sec (22.0-30.0)
--- NOTE | 2020-12-21 10:59 | CT ---
EXAMINATION TYPE: CT abdomen pelvis w con DATE OF EXAM: 12/21/2020 HISTORY: left flank pain CT DLP: 1669mGycm Automated Exposure Control for Dose Reduction was Utilized. CONTRAST: CT scan of the abdomen and pelvis is performed with IV Contrast, patient injected with 100ml mL of Is ovue 300. COMPARISON: CT abdomen July 22, 2017 FINDINGS: LUNG BASES: No significant abnormality is appreciated. LIVER/GB: Liver is diffusely low-density consistent with fatty infiltration. PANCREAS: [id number] fat replaced atrophy of the pancreatic head and uncinate process redemonst rated. SPLEEN: No significant abnormality is seen. ADRENALS: No significant abnormality is seen. KIDNEYS: Symmetric cortical medullary uptake and excretion without hydronephrosis seen bilaterally. BOWEL: Normal appendix from cecum in the right pelvis. No abnormal small or large bowel dilatation. UTERUS/ADNEXA: Uterus is surgically absent. Scattered bilateral pelvic phleboliths. LYMPH NODES: No new greater than 1cm abdominal or pelvic lymph nodes are appreciated. OSSEOUS STRUCTURES: Prominent Schmorl node superior L1 endplate redemonstrated. [id number]-lg-smevryms axia l joint space loss both hips. OTHER: Mild/moderate calcified plaque of small caliber abdominal aorta redemonstrated extending into the iliac branch vessels. IMPRESSION: No significant new or acute finding is seen to account for patient's clinical symptoms of left-sided flank pain.
[2020-12-21 11:12] LABS: Appearance,Urine Clear (Clear); Bilirubin,Urine Negative (Negative); Blood,Urine Small (Negative); Color,Urine Yellow; Glucose,Urine (UA) Negative (Negative); Ketones,Urine Negative (Negative); Leukocyte Esterase,Urine Negative (Negative); Nitrite,Urine Negative (Negative); Protein,Urine Negative (Negative); RBC,Urine 4 /hpf (0-5); Specific Gravity,Urine 1.017 (1.001-1.035); Squamous Epithelial Cell,Urine <1 /hpf (0-4); Urobilinogen,Urine <2.0 mg/dL (<2.0); WBC,Urine <1 /hpf (0-5)
[2020-12-21] MEDS ORDERED: NALOXONE 0.4 MG/ML 1 ML VIAL IV PRN (12:00)
[2020-12-21] MEDS ORDERED: ONDANSETRON 4 MG/2 ML VIAL IVP PRN (12:00)
[2020-12-21] MEDS ORDERED: ACETAMINOPHEN TAB 500 MG TAB PO STA (13:50)
[2020-12-21] MEDS: HYDROmorphone 0.5 MG/0.5 ML SYRINGE IVP PRN ×3 (13:55→22:33)
[2020-12-21] MEDS: SODIUM CHLORIDE 0.9% 1,000 ML IV SCH ×2 (13:59→19:31)
[2020-12-21 17:18] LABS: Glucose,Whole Blood 110 mg/dL (75-99)
[2020-12-21] MEDS: ATORVASTATIN 40 MG TAB PO SCH (19:31)
[2020-12-21] MEDS: MONTELUKAST 10 MG TAB PO SCH (19:31)
[2020-12-21 20:21] LABS: Glucose,Whole Blood 142 mg/dL (75-99)
[2020-12-22] MEDS: LEVOTHYROXINE 100 MCG TAB PO SCH (05:16)
[2020-12-22 07:46] LABS: Glucose,Whole Blood 106 mg/dL (75-99)
[2020-12-22] MEDS: lisinopriL 10 MG TAB PO SCH (08:36)
[2020-12-22] MEDS: amLODIPine 5 MG TAB PO SCH (08:36)
[2020-12-22] MEDS: PANTOPRAZOLE 40 MG/10 ML VIAL IV SCH (08:36)
[2020-12-22] MEDS ORDERED: ACETAMINOPHEN TAB 325 MG TAB PO STA (08:41)
[2020-12-22 10:00] LABS: Basophils # (A) 0.03 X 10*3/uL (0.00-0.10); Basophils % (A) 0.2 %; Eosinophils # (A) 0.28 X 10*3/uL (0.04-0.35); Eosinophils % (A) 1.6 %; HCT 33.3 % (37.2-46.3); HGB 10.3 g/dL (12.0-15.0); Lymphocytes # (A) 2.05 X 10*3/uL (0.90-5.00); Lymphocytes % (A) 11.7 %; MCH 28.3 pg (27.0-32.0); MCHC 30.9 g/dL (32.0-37.0); MCV 91.5 fL (80.0-97.0); Mean Platelet Volume 12.1 fL (9.5-12.2); Monocytes # (A) 0.56 X 10*3/uL (0.20-1.00); Monocytes % (A) 3.2 %; Neutrophils # (A) 14.48 X 10*3/uL (1.80-7.70); Neutrophils % (A) 82.8 %; Platelet Count 300 X 10*3/uL (140-440); RBC 3.64 X 10*6/uL (4.10-5.20); RDW 14.8 % (11.5-14.5); WBC 17.48 X 10*3/uL (4.50-10.00)
[2020-12-22 11:37] LABS: African American GFR (CKD) 78.3 (60.0-200.0); Albumin 3.9 g/dL (3.80-4.90); Albumin/Globulin Ratio 2.05 (1.60-3.17); Anion Gap 11.1 mmol/L (4.00-12.00); BUN/Creat Ratio 12.22 Ratio (12.00-20.00); Calcium 8.5 mg/dL (8.7-10.3); Carbon Dioxide 23.9 mmol/L (21.6-31.8); Globulin 1.9 g/dL (1.6-3.3); Non-African American GFR(CKD) 67.6 (60.0-200.0); Total Bilirubin 0.4 mg/dL (0.2-1.2); Total Protein 5.8 g/dL (6.2-8.2)
[2020-12-22 12:45] LABS: Glucose,Whole Blood 121 mg/dL (75-99)
[2020-12-22] MEDS ORDERED: ACETAMINOPHEN TAB 325 MG TAB PO PRN (14:34)
--- NOTE | 2020-12-22 17:24 | P.HPIM ---
History of Present Illness H&P Date: 12/22/20 Chief Complaint: Back pain/flank pain 65 year-old female presenting to the emergency Department with complaints of back discomfort. Onset of symptoms was a couple of days ago. Patient has been fatigued. Patient has had chills however no fever. Discomfort is somewhat diffuse between the back. Patient also has some abdominal and chest discomfort. Discomfort is currently rated 8/10. Patient has nausea without vomiting. No constipation or diarrhea. Patient seen at her doctor's recently with concern for early urinary tract infection and started on antibiotic. Patient states the worst area of discomfort is left CVA region. Workup in ED revealed an elevated white blood count of 24, BUN/creatinine of 13/0.8 and mild elevation in blood glucose was 135 Review of Systems REVIEW OF SYSTEMS: CONSTITUTIONAL: No fever, no malaise, no fatigue. HEENT: No recent visual problems or hearing problems. Denied any sore throat. CARDIOVASCULAR: No chest pain, orthopnea, PND, no palpitations, no syncope. PULMONARY: No shortness of breath, no cough, no hemoptysis. GASTROINTESTINAL: No diarrhea, no nausea, no vomiting, no abdominal pain. NEUROLOGICAL: No headaches, no weakness, no numbness. HEMATOLOGICAL: Denies any bleeding or petechiae. GENITOURINARY: Denies any burning micturition, frequency, or urgency. MUSCULOSKELETAL/RHEUMATOLOGICAL: Denies any joint pain, swelling, or any muscle pain. ENDOCRINE: Denies any polyuria or polydipsia. The rest of the 14-point review of systems is negative. Past Medical History Past Medical History: Asthma, Hyperlipidemia, Hypertension, Thyroid Disorder Additional Past Medical History / Comment(s): migraines, varicose veins, History of Any Multi-Drug Resistant Organisms: None Reported Past Surgical History: Adenoidectomy, Section, Hysterectomy, Orthopedic Surgery, Tonsillectomy Additional Past Surgical History / Comment(s): Exploratory laparotomy/xiomara oophorectomy, trigger thumb-rt hand, temporal biopsy, Past Anesthesia/Blood Transfusion Reactions: Motion Sickness Additional Past Anesthesia/Blood Transfusion Reaction / Comment(s): . Past Psychological History: No Psychological Hx Reported Additional Psychological History / Comment(s): . Smoking Status: Never smoker Past Alcohol Use History: None Reported Additional Past Alcohol Use History / Comment(s): quit smoking 30 yrs ago, smoked for 5 yrs, 1/2 PPD Past Drug Use History: None Reported - Past Family History Father Family Medical History: Coronary Artery Disease (CAD), Myocardial Infarction (AL) Additional Family Medical History / Comment(s): Father of a AL Mother Family Medical History: No Reported History Additional Family Medical History / Comment(s): Mother is . Medications and Allergies Home Medications Medication Instructions Recorded Confirmed Type Levothyroxine Sodium [Synthroid] 100 mcg PO DAILY 03/10/17 12/21/20 History Montelukast [Singulair] 10 mg PO HS 03/10/17 12/21/20 History amLODIPine BESYLATE/BENAZEPRIL 1 cap PO DAILY 03/10/17 12/21/20 History [Lotrel 5-10 mg Capsule] metFORMIN HCL [Glucophage] 500 mg PO W/SUPPER 01/04/20 12/21/20 History Atorvastatin [Lipitor] 40 mg PO HS 12/21/20 12/21/20 History Nitrofurantoin Monohyd/M-Cryst 100 mg PO Q12HR 12/21/20 12/21/20 History [Macrobid] Allergies Allergy/AdvReac Type Severity Reaction Status Date / Time sulfamethoxazole Allergy Rash/Hives Verified 12/21/20 10:48 [From Bactrim] trimethoprim [From Bactrim] Allergy Rash/Hives Verified 12/21/20 10:48 Physical Exam Vitals: Vital Signs Temp Pulse Pulse Resp BP BP Pulse Ox 12/22/20 08:00 16 12/22/20 07:00 99.7 F H 94 16 154/83 94 L 12/22/20 01:00 18 12/22/20 00:51 98.9 F 96 16 111/64 94 L 12/21/20 20:00 18 12/21/20 18:57 98.0 F 83 18 105/64 93 L 12/21/20 16:40 16 12/21/20 16:27 98.9 F 100 16 114/66 94 L 12/21/20 15:52 100.7 F H 116 H 18 121/59 96 12/21/20 15:00 116 H 18 96 12/21/20 14:00 116 H 18 96 12/21/20 13:42 100.7 F H 116 H 18 121/59 96 Intake and Output 12/21/20 12/22/20 12/22/20 22:59 06:59 14:59 Other: Voiding Method Toilet Toilet # Voids 1 1 Weight 101.151 kg - Constitutional General appearance: Present: average body habitus, cooperative, no acute distress - EENT Eyes: Present: anicteric sclerae, EOMI, PERRLA, normal appearance ENT: Present: hearing grossly normal, normal oropharynx Ears: bilateral: normal - Neck Neck: Present: normal ROM. Absent: lymphadenopathy, rigidity, thyromegaly Carotids: negative: bruit present Thyroid: bilateral: normal size, negative: enlarged, nodule - Respiratory Respiratory: bilateral: CTA, negative: rales, rhonchi, wheezing - Cardiovascular Rhythm: regular Heart sounds: normal: S1, S2 Abnormal Heart Sounds: Absent: systolic murmur, diastolic murmur - Gastrointestinal General gastrointestinal: Present: normal bowel sounds, soft. Absent: distended, organomegaly, tenderness - Genitourinary Genitourinary Comment(s): deferred - Integumentary Integumentary: Present: normal turgor. Absent: jaundiced, rash, ulcer - Neurologic Neurologic: Present: CNII-XII intact. Absent: focal deficits - Musculoskeletal Musculoskeletal: Present: gait normal, strength equal bilaterally - Psychiatric Psychiatric: Present: A&O x's 3, appropriate affect, intact judgment & insight Results CBC & Chem 7: 12/22/20 05:20 12/22/20 05:20 Labs: Abnormal Lab Results - Last 24 Hours (Table) 12/21/20 12/21/20 12/22/20 Range/Units 17:16 20:19 05:20 WBC 17.48 H (4.50-10.00) X 10*3/uL RBC 3.64 L (4.10-5.20) X 10*6/uL Hgb 10.3 L (12.0-15.0) g/dL Hct 33.3 L (37.2-46.3) % MCHC 30.9 L (32.0-37.0) g/dL RDW 14.8 H (11.5-14.5) % Immature Gran # 0.08 H (0.00-0.04) X 10*3/uL Neutrophils # 14.48 H (1.80-7.70) X 10*3/uL Glucose (70-110) mg/dL POC Glucose (mg/dL) 110 H 142 H (75-99) mg/dL Calcium (8.7-10.3) mg/dL Total Protein (6.2-8.2) g/dL 12/22/20 12/22/20 Range/Units 05:20 07:45 WBC (4.50-10.00) X 10*3/uL RBC (4.10-5.20) X 10*6/uL Hgb (12.0-15.0) g/dL Hct (37.2-46.3) % MCHC (32.0-37.0) g/dL RDW (11.5-14.5) % Immature Gran # (0.00-0.04) X 10*3/uL Neutrophils # (1.80-7.70) X 10*3/uL Glucose 114 H (70-110) mg/dL POC Glucose (mg/dL) 106 H (75-99) mg/dL Calcium 8.5 L (8.7-10.3) mg/dL Total Protein 5.8 L (6.2-8.2) g/dL Thrombosis Risk Factor Assmnt - Choose All That Apply Any of the Below Risk Factors Present?: Yes Each Factor Represents 1 point: Medical pt on bed rest, Obesity (BMI >25) Other Risk Factors: Yes Each Risk Factor Represents 2 Points: Age 61-74 years Other congenital or acquired thrombophilia - If yes, enter type in comment: No Thrombosis Risk Factor Assessment Total Risk Factor Score: 4 Thrombosis Risk Factor Assessment Level: Moderate Risk Assessment and Plan Assessment: 1. UTI/pyelonephritis; patient has significant leukocytosis; UA itself is unrem arkable due to possibility of patient having initiated antibiotic therapy by her outpatient; patient has been started on Rocephin 1 g IV daily and we will continue with current management and order urine and blood cultures; we will consult ID and close further recommendations once culture results are available 2. Hyperglycemia/diabetes mellitus type 2; patient takes metformin 500 mg daily; we will hold off on oral hypoglycemics and start patient on Accu-Cheks every before meals and at bedtime with insulin sliding scale 3. Hypothyroidism; levothyroxin 100 MCG daily 4. Hyperlipidemia; Lipitor 40 mg by mouth daily at bedtime 5. Uncontrolled Hypertension; patient takes amlodipine/Benzapril 5 mg daily along with monitoring Accu-Cheks every before meals and at bedtime with insulin sliding scale Asthma; not in exacerbation; continue with home inhaler therapy DVT prophylaxis; SCDs/subcu heparin CODE STATUS; full code
[2020-12-22 17:47] LABS: Glucose,Whole Blood 107 mg/dL (75-99)
[2020-12-22] MEDS: PIPERACILLIN-TAZOBACTAM 3.375 GM in SODIUM CHLORIDE 0.9% 100 ML IVPB SCH ×2 (18:06→23:07)
[2020-12-22] MEDS: SODIUM CHLORIDE 0.9% 1,000 ML IV SCH (18:12)
[2020-12-22] MEDS: MONTELUKAST 10 MG TAB PO SCH (20:03)
[2020-12-22] MEDS: ATORVASTATIN 40 MG TAB PO SCH (20:03)
[2020-12-22 20:11] LABS: Glucose,Whole Blood 151 mg/dL (75-99)
[2020-12-23] MEDS: SODIUM CHLORIDE 0.9% 1,000 ML IV SCH ×2 (02:57→17:39)
[2020-12-23] MEDS: LEVOTHYROXINE 100 MCG TAB PO SCH (06:05)
[2020-12-23 07:00] LABS: Glucose,Whole Blood 128 mg/dL (75-99)
[2020-12-23 07:44] VITALS: RESP 19
[2020-12-23 09:12] LABS: Basophils # (A) 0.02 X 10*3/uL (0.00-0.10); Basophils % (A) 0.2 %; Eosinophils # (A) 0.33 X 10*3/uL (0.04-0.35); Eosinophils % (A) 3.5 %; HGB 10.4 g/dL (12.0-15.0); Lymphocytes # (A) 2.24 X 10*3/uL (0.90-5.00); Lymphocytes % (A) 23.7 %; MCH 28.4 pg (27.0-32.0); MCHC 31.5 g/dL (32.0-37.0); MCV 90.2 fL (80.0-97.0); Mean Platelet Volume 12.2 fL (9.5-12.2); Monocytes # (A) 0.47 X 10*3/uL (0.20-1.00); Neutrophils # (A) 6.34 X 10*3/uL (1.80-7.70); Platelet Count 273 X 10*3/uL (140-440); RBC 3.66 X 10*6/uL (4.10-5.20); RDW 14.5 % (11.5-14.5); WBC 9.46 X 10*3/uL (4.50-10.00)
[2020-12-23] MEDS: PIPERACILLIN-TAZOBACTAM 3.375 GM in SODIUM CHLORIDE 0.9% 100 ML IVPB SCH ×2 (09:12→15:53)
[2020-12-23] MEDS: lisinopriL 10 MG TAB PO SCH (09:13)
[2020-12-23] MEDS: PANTOPRAZOLE 40 MG/10 ML VIAL IV SCH (09:13)
[2020-12-23] MEDS: amLODIPine 5 MG TAB PO SCH (09:13)
[2020-12-23 10:10] LABS: African American GFR (CKD) 90.3 (60.0-200.0); Anion Gap 14.4 mmol/L (4.00-12.00); BUN/Creat Ratio 13.75 Ratio (12.00-20.00); Carbon Dioxide 20.6 mmol/L (21.6-31.8); Non-African American GFR(CKD) 77.9 (60.0-200.0); Potassium 4.5 mmol/L (3.5-5.5)
[2020-12-23 11:28] LABS: Glucose,Whole Blood 156 mg/dL (75-99)
--- NOTE | 2020-12-23 13:20 | CONS ---
CONSULTATION HISTORY OF PRESENT ILLNESS: Rafia Treadwell is a 65-year-old lady with a history of hypertension and hyperlipidemia who came into the hospital with mostly a flank discomfort. She was complaining of discomfort in her right lumbar area and the pelvic area. These were her initial complaints. Then she complained of a sharp pain in the chest which lasted maybe a few seconds each time. She indicated that this was going on and off. She feels she has a urinary tract infection. There is some burning micturition as well. After arrival, her upper chest discomfort has resolved and her right flank pain and the left flank pain as well as the right pelvic pain seems to be persistent, but at a much lower level. She has diagnosis of hypertension, hyperlipidemia and hypothyroidism. Her white count on arrival was high and it has come down to 17 last night and morning labs are pending. Possibility of UTI is being considered, but on looking at the urinalysis, I do not see anything worrisome at this time. PAST MEDICAL HISTORY: 1. Hypertension. 2. Hypercholesterolemia. 3. History of hypothyroidism. 4. Bronchial asthma. 5. Type 2 diabetes mellitus on oral agents. PAST SURGICAL HISTORY: She is status post exploratory laparotomy, bilateral oophorectomy, and she had some trigger thumb surgery. MEDICATION ALLERGIES: She is allergic to SULFA and BACTRIM. MEDICATIONS: Include Synthroid 100 mcg daily. Singulair 10 mg daily. Lotrel 5/10 1 tab daily. 500 mg of Glucophage daily and 40 mg of Lipitor daily. EXAMINATION: On examination, vitals are stable. HEENT unremarkable. Fundus was not examined by me. Neck is supple. No JVD. I do not hear a carotid bruit. There is no thyromegaly. HEART exam reveals S1, S2 heard normally. No rub, murmur or gallop. LUNGS are clear. Abdomen is soft, nontender. Lower extremities reveal normal pulses. No edema. Central nervous system is normal. EKG revealed sinus mechanism, no acute changes. IMPRESSION: 1. Atypical chest pain. 2. Possibly urinary tract infection. 3. Hypertension. 4. Hyperlipidemia. RECOMMENDATIONS: From a cardiac standpoint, I am not recommending any intervention at this time. I will see the patient in the office in 2-3 weeks and perform outpatient testing. She certainly has risk factors. She has type 2 diabetes, hypertension, hyperlipidemia, and her presentation is certainly not suggestive of angina. However, she will need further workup as an outpatient, which I will facilitate. Advised the patient to call me and I will see her in the office in the next 2 weeks or so. I will see her as needed during this hospitalization. She is already on antibiotics and being seen by Infectious Disease specialist. Thank you for the consultation. MMYADY / CHUNG: [id number] /
[2020-12-23 15:39] VITALS: BP 136/72; PULSE 67; TEMP 97.8
--- NOTE | 2020-12-23 18:21 | PN ---
PROGRESS NOTE DATE OF SERVICE: 12/23/2020 REASON FOR FOLLOWUP: Leukocytosis abdominal pain, possible mild diverticulitis. INTERVAL HISTORY: Patient is currently afebrile. The patient is breathing comfortably. The patient's left leg and left lower abdominal pain has decreased in intensity. The patient complaining of some constipation. No diarrhea though. No chest pain, shortness of breath or cough. No urinary symptoms. PHYSICAL EXAMINATION: Blood pressure 136/72, pulse of 67, temperature 97.8. She is 98% on room air. General description is a middle-aged female up in the bed in no distress. Respiratory system: Unlabored breathing, clear to auscultation anteriorly. Heart S1, S2. Regular rate and rhythm. Abdomen soft, no tenderness. LABORATORY DATA: Hemoglobin 10.1, white count is normalized at 9.46. BUN of 11, creatinine 0.8. Blood culture has been negative. DIAGNOSTIC IMPRESSION AND PLAN: Patient admitted to the hospital with abdominal pain, mostly pain in the left flank and left lower abdominal area with significant elevated white count. She did have a CT of abdomen and pelvis that was done without contrast and may have missed some of the findings. Patient overall improvement with Zosyn. White count normalized. Recommend a short course of oral Augmentin on discharge and close outpatient followup. MMODL / IJN: [id number] /
== END 2020-12-23 20:54 | disposition home or self-care (01) ==
LOC: EC 08:14 → 6NMEDSUR 12:00
PROVIDERS: ADMIT Family Medicine; ATTEND Family Medicine
DX: N12 Tubulo-interstitial nephritis, not specified as acute or chronic (principal); E11.65 Type 2 diabetes mellitus with hyperglycemia; R07.89 Other chest pain; E03.9 Hypothyroidism, unspecified; I10 Essential (primary) hypertension; J45.909 Unspecified asthma, uncomplicated; E78.00 Pure hypercholesterolemia, unspecified; E78.5 Hyperlipidemia, unspecified; G43.909 Migraine, unspecified, not intractable, without status migrainosus; I83.90 Asymptomatic varicose veins of unspecified lower extremity; E66.9 Obesity, unspecified; Z68.41 Body mass index [BMI] 40.0-44.9, adult; K59.00 Constipation, unspecified; Z79.890 Hormone replacement therapy; Z79.84 Long term (current) use of oral hypoglycemic drugs; Z79.899 Other long term (current) drug therapy; Z88.1 Allergy status to other antibiotic agents; Z88.2 Allergy status to sulfonamides; Z87.891 Personal history of nicotine dependence; Z90.722 Acquired absence of ovaries, bilateral; Z90.710 Acquired absence of both cervix and uterus; Z98.890 Other specified postprocedural states; Z98.891 History of uterine scar from previous surgery; Z82.49 Family history of ischemic heart disease and other diseases of the circulatory system
CPT/HCPCS: 96376 ×4; 96361 ×3; 96366 ×2; 96367; 93005 ×3; 96365; 96375; 99285; 36415; 85379; 80053 ×2; 80048; 82150; 83690; 84484; 85025 ×3; 85610; 85730; 81001; 87040; 87635; 71046; 74018; 74177; G0378 ×3; J2543 ×2; J2405; J0696 ×2; C9113 ×3; J1170; Q9967

== ENCOUNTER → 2021-01-10 | Outpatient (CLI) | payer BC ==
[2021-01-10 18:52] LABS: Basophils # (A) 0.02 X 10*3/uL (0.00-0.10); Basophils % (A) 0.2 %; Eosinophils # (A) 0.09 X 10*3/uL (0.04-0.35); HCT 35.8 % (37.2-46.3); HGB 11.4 g/dL (12.0-15.0); Lymphocytes # (A) 3.42 X 10*3/uL (0.90-5.00); Lymphocytes % (A) 39.4 %; MCH 28.5 pg (27.0-32.0); MCHC 31.8 g/dL (32.0-37.0); MCV 89.5 fL (80.0-97.0); Mean Platelet Volume 11.9 fL (9.5-12.2); Monocytes # (A) 0.53 X 10*3/uL (0.20-1.00); Monocytes % (A) 6.1 %; Neutrophils # (A) 4.59 X 10*3/uL (1.80-7.70); Neutrophils % (A) 52.8 %; Platelet Count 341 X 10*3/uL (140-440); RDW 14.6 % (11.5-14.5); WBC 8.69 X 10*3/uL (4.50-10.00)
== END | disposition home or self-care (01) ==
LOC: LABWHC1 13:45
PROVIDERS: ATTEND Nurse Practitioner
DX: D72.829 Elevated white blood cell count, unspecified (principal)
CPT/HCPCS: 36415; 85025

== ENCOUNTER → 2021-06-13 | Outpatient (CLI) | payer BC ==
[2021-06-13 15:32] LABS: African American GFR (CKD) >90 (>60 ml/min/1.73 sqM); Blood Urea Nitrogen 16 mg/dL (7-17); Non-African American GFR(CKD) 84 (>60 ml/min/1.73 sqM)
--- NOTE | 2021-06-18 11:00 | CT ---
EXAMINATION TYPE: CT abdomen pelvis w con DATE OF EXAM: 06/13/2021 COMPARISON: 12/21/2020 HISTORY: BILATERAL GROIN PAIN AND FLANK PAIN CT DLP: 2047.6 mGycm Automated exposure control for dose reduction was used. TECHNIQUE: Helical acquisition of images was performed from the lung bases through the pelvis. CONTRAST: Performed with Oral Contrast and with IV Contrast, patient injected with 100 mL of Isovue 370. FINDINGS: LUNG BASES: Normal. LIVER: Normal. BILIARY SYSTEM: Normal. PANCREAS: Normal. SPLEEN: Normal. ADRENALS: Normal. KIDNEYS: No hydronephrosis. Too small to characterize hypodense lesions of the bilateral kidneys. The re is homogenous and synchronous renal parenchymal enhancement and excretion. BOWEL: No obstruction or thickening. Oral contrast is seen to the level of the mid transverse colon. Normal appendix. PERITONEUM: No pneumoperitoneum. No free fluid. No abdominal wall hernia. LYMPH NODES: No lymphadenopathy. PELVIS: Normal urinary bladder. Status post hysterectomy. VASCULATURE: No abdominal aortic aneurysm. MUSCULOSKELETAL: Degenerative changes of the spine and hips. There is redemonstrated prominent super ior endplate Schmorl's node of L1. Minimal nonacute superior endplate height loss of L1 and L2 relate d to degenerative changes. IMPRESSION: No acute findings to explain patient's groin or flank pain.
== END | disposition home or self-care (01) ==
LOC: RADCTMAIN 14:58
PROVIDERS: ATTEND Family Medicine
DX: R10.9 Unspecified abdominal pain (principal)
CPT/HCPCS: 82565; 84520; 74177; 36415; Q9967

== ENCOUNTER 2021-06-27 12:33 | Emergency (ER) | payer BC, OTHER ==
[2021-06-27 13:10] VITALS: TEMP 97.3
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
[2021-06-27 14:49] VITALS: BP 157/84; PULSE 70; RESP 18
== END 2021-06-27 14:48 | disposition home or self-care (01) ==
LOC: EC 12:33
DX: M54.2 Cervicalgia (principal); V89.2XXA Person injured in unspecified motor-vehicle accident, traffic, initial encounter; J45.909 Unspecified asthma, uncomplicated; E78.5 Hyperlipidemia, unspecified; I10 Essential (primary) hypertension; G43.909 Migraine, unspecified, not intractable, without status migrainosus
CPT/HCPCS: 70450; 72125; 99284

== ENCOUNTER → 2021-09-07 | Outpatient (CLI) | payer BC, MEDICARE ==
--- NOTE | 2021-09-07 15:54 | XR ---
EXAMINATION TYPE: XR abdomen 2V DATE OF EXAM: 09/07/2021 COMPARISON: 12/21/2020 INDICATION: Bilateral renal stones TECHNIQUE: Abdomen is examined in the supine and upright views. FINDINGS: Normal colonic bowel gas is present. No air-fluid levels or differential air-fluid levels are present . No free air is evident. No mass effect is evident. Psoas margins are normal. No organomegaly is present. Phleboliths are within the pelvis. Surgical clips are in the left hemipelvis. IMPRESSION: 1. Unremarkable Abdomen
== END | disposition home or self-care (01) ==
LOC: RADXRMAIN 15:27
PROVIDERS: ATTEND Nurse Practitioner Family
DX: N20.0 Calculus of kidney (principal)
CPT/HCPCS: 74019

== ENCOUNTER 2021-09-10 11:11 | Emergency (ER) | payer BC, MEDICARE ==
[2021-09-10 11:23] VITALS: RESP 18
[2021-09-10 11:43] LABS: Appearance,Urine Clear (Clear); Bilirubin,Urine Negative (Negative); Blood,Urine Negative (Negative); Color,Urine Colorless; Glucose,Urine (UA) Negative (Negative); Ketones,Urine Negative (Negative); Leukocyte Esterase,Urine Negative (Negative); Nitrite,Urine Negative (Negative); Protein,Urine Negative (Negative); Specific Gravity,Urine 1.002 (1.001-1.035); Urobilinogen,Urine <2.0 mg/dL (<2.0)
[2021-09-10] MEDS ORDERED: ONDANSETRON 4 MG/2 ML VIAL IVP STA (15:26)
[2021-09-10] MEDS ORDERED: KETOROLAC 15 MG/ML 1 ML VIAL IVP STA (15:26)
[2021-09-10] MEDS ORDERED: SODIUM CHLORIDE 0.9% 1,000 ML IV STA (15:27)
--- NOTE | 2021-09-10 15:48 | ED ---
General Adult HPI - General Chief complaint: Abdominal Pain Stated complaint: abd pain Time Seen by Provider: 09/10/21 14:57 Source: patient, RN notes reviewed, old records reviewed Mode of arrival: ambulatory Limitations: no limitations - History of Present Illness Initial comments: Patient is a 65-year-old female with past medical history remarkable for multiple times over the last year who presents to the emergency department with recurrence of her abdominal pain. She was seen last week for similar symptoms. Describes it as a sharp, aching pain located in the bilateral lower quadrants of her abdomen. She does have a history of total hysterectomy, however no other abdominal surgeries. States she is anxious regarding the pain. Initially they thought it may be kidney stones, however that work up is normal. She presents today as she is uncertain what is causing the pain. She states that it is improved from last week but still would like to be reevaluated. They obtained x-rays last week basic labs that were relatively unremarkable. She does endorse possibly some mild blood in her urine. Denies any dysuria, pyuria. Denies any nausea, vomiting. Denies constipation, diarrhea. Denies any fevers, chills, sick contacts. Has not chest pain or shortness of breath. His no other acute complaints at this time. She is been dealing with this pain for over a year. Last received a CT scan last year, which showed possible diverticulitis, however she states that upon admission and a short course of antibiotics there uncertain of that diagnosis. She states the pain is similar to that time which is why she presents emergency department for further evaluation. - Related Data Home Medications Medication Instructions Recorded Confirmed Levothyroxine Sodium [Synthroid] 100 mcg PO DAILY 03/10/17 09/10/21 amLODIPine BESYLATE/BENAZEPRIL 1 cap PO DAILY 03/10/17 09/10/21 [Lotrel 5-10 MG] Atorvastatin [Lipitor] 40 mg PO HS 12/21/20 09/10/21 Cholecalciferol [Vitamin D3 (125 125 mcg PO DAILY 09/10/21 09/10/21 Mcg = 5000 Iu)] Ketorolac [Toradol] 10 mg PO Q6HR PRN 09/10/21 09/10/21 Ondansetron [Zofran] 4 mg PO Q8HR PRN 09/10/21 09/10/21 Tolterodine ER [Detrol LA] 4 mg PO DAILY 09/10/21 09/10/21 metFORMIN HCL ER [Glucophage XR] 500 mg PO W/SUPPER 09/10/21 09/10/21 Allergies Allergy/AdvReac Type Severity Reaction Status Date / Time sulfamethoxazole Allergy Rash/Hives Verified 09/10/21 16:31 [From Bactrim] trimethoprim [From Bactrim] Allergy Rash/Hives Verified 09/10/21 16:31 Review of Systems ROS Statement: Those systems with pertinent positive or pertinent negative responses have been documented in the HPI. Review of Systems: CONST: Denies fever EYES: Denies blurry vision ENT: Denies nasal congestion C/V: Denies Chest pain RESP: Denies shortness of breath GI: Endorses lower abdominal pain bilaterally. : Denies dysuria SKIN: Denies rash. MSK: Denies joint pain. NEURO: Denies headache ROS Other: All systems not noted in ROS Statement are negative. Past Medical History Past Medical History: Asthma, Hyperlipidemia, Hypertension, Thyroid Disorder Additional Past Medical History / Comment(s): migraines, varicose veins, History of Any Multi-Drug Resistant Organisms: None Reported Past Surgical History: Adenoidectomy, Section, Hysterectomy, Orthopedic Surgery, Tonsillectomy Additional Past Surgical History / Comment(s): Exploratory laparotomy/xiomara oophorectomy, trigger thumb-rt hand, temporal biopsy, Past Anesthesia/Blood Transfusion Reactions: Motion Sickness Additional Past Anesthesia/Blood Transfusion Reaction / Comment(s): . Past Psychological History: No Psychological Hx Reported Smoking Status: Never smoker Past Alcohol Use History: None Reported Past Drug Use History: None Reported - Past Family History Father Family Medical History: Coronary Artery Disease (CAD), Myocardial Infarction (IN) Additional Family Medical History / Comment(s): Father of a IN Mother Family Medical History: No Reported History Additional Family Medical History / Comment(s): Mother is . General Exam - General Exam Comments Initial Comments: General: Appears in no acute distress. Appears anxious. HEAD: Normal with no signs of head trauma. EYES: PERRLA, EOMI, conjunctiva normal, no discharge. ENT: Hearing grossly intact, normal oropharynx. RESPIRATORY: Clear breath sounds bilaterally. No wheezes, rales, or rhonchi. C/V: Tachycardic with a regular rhythm. S1 and S2 auscultated. Peripheral pulses 2+ intact throughout. ABD: Abdomen soft, nondistended. She is minimally tender to palpation in the bilateral right and left lower quadrants. Appears to extend to the bilateral flanks. No CVA tenderness to percussion. No guarding. No peritoneal signs. No rebound tenderness. EXT: Normal range of motion, no obvious deformity SKIN: No rashes or lesions observed on exposed skin. NEURO: Alert and oriented 4. Limitations: no limitations Course Vital Signs 09/10/21 11:18 Temperature 98.4 F Pulse Rate 109 H Respiratory 18 Rate Blood Pressure 175/86 O2 Sat by Pulse 98 Oximetry Medical Decision Making - Medical Decision Making Based on the patient's presentation and physical exam, I'm concerned for possible intra-abdominal process for current symptoms. Cannot rule out diverticulitis diverticulosis. I discussed with the patient had we may not find the answer, she is been having this pain for last year. She did express understanding. We will obtain abdominal laboratory studies as well as a CT and pelvis. She'll be given a 1 L fluid bolus. She requests no opiate analgesia and she'll be given IV Toradol in addition to IV Zofran. Patient was in agreement this plan. Patient's laboratory studies returned and were unremarkable. Urinalysis is within normal limits patient's of the slight leukocytosis of 12.1 which could be reactive secondary to pain. Patient's CT abdomen and pelvis revealed mild to moderate stool burden but no acute intra-abdominal process. There is some hepatomegaly, however laboratory studies are within normal limits and this includes LFTs, alk phos. On reevaluation, patient's pain is improved. We discussed her imaging results as well as her laboratory studies results. She expressed understanding. I did discuss with her that I would like to discharge her home at this time. She was in agreement this plan. She can follow-up with her urologist appointment tomorrow. She continued to take her home medications for it. She was in agreement this plan. I instructed the patient to follow up with their PCP in the next 3 days. I explained that the patient should return to the emergency department if they experience any worsening symptoms. Strict return precautions were discussed with the patient. The patient expressed understanding of these instructions. I answered all questions that the patient had. The patient was discharged home in good condition with their prescriptions and follow up information. - Lab Data Result diagrams: 09/10/21 15:42 09/10/21 15:42 Lab Results 09/10/21 09/10/21 09/10/21 Range/Units 11:23 15:42 15:42 WBC 12.1 H (3.8-10.6) k/uL RBC 4.56 (3.80-5.40) m/uL Hgb 12.9 (11.4-16.0) gm/dL Hct 40.7 (34.0-46.0) % MCV 89.4 (80.0-100.0) fL MCH 28.3 (25.0-35.0) pg MCHC 31.6 (31.0-37.0) g/dL RDW 13.9 (11.5-15.5) % Plt Count 328 (150-450) k/uL MPV 8.4 Neutrophils % 63 % Lymphocytes % 29 % Monocytes % 4 % Eosinophils % 3 % Basophils % 0 % Neutrophils # 7.6 (1.3-7.7) k/uL Lymphocytes # 3.5 (1.0-4.8) k/uL Monocytes # 0.5 (0-1.0) k/uL Eosinophils # 0.3 (0-0.7) k/uL Basophils # 0.0 (0-0.2) k/uL Sodium 142 (137-145) mmol/L Potassium 4.4 (3.5-5.1) mmol/L Chloride 103 (98-107) mmol/L Carbon Dioxide 28 (22-30) mmol/L Anion Gap 11 mmol/L BUN 11 (7-17) mg/dL Creatinine 0.77 (0.52-1.04) mg/dL Est GFR (CKD-EPI)AfAm >90 (>60 ml/min/1.73 sqM) Est GFR (CKD-EPI)NonAf 82 (>60 ml/min/1.73 sqM) Glucose 110 H (74-99) mg/dL Calcium 10.0 (8.4-10.2) mg/dL Total Bilirubin 0.5 (0.2-1.3) mg/dL AST 21 (14-36) U/L ALT 20 (4-34) U/L Alkaline Phosphatase 89 (38-126) U/L Total Protein 7.8 (6.3-8.2) g/dL Albumin 4.8 (3.5-5.0) g/dL Amylase 59 (30-110) U/L Lipase 66 (23-300) U/L Urine Color Colorless Urine Appearance Clear (Clear) Urine pH 7.0 (5.0-8.0) Ur Specific [place] 1.002 (1.001-1.035) Urine Protein Negative (Negative) Urine Glucose (UA) Negative (Negative) Urine Ketones Negative (Negative) Urine Blood Negative (Negative) Urine Nitrite Negative (Negative) Urine Bilirubin Negative (Negative) Urine Urobilinogen <2.0 (<2.0) mg/dL Ur Leukocyte Esterase Negative (Negative) Disposition Clinical Impression: Chronic abdominal pain Disposition: HOME SELF-CARE Condition: Good Instructions (If sedation given, give patient instructions): Abdominal Pain (ED) Is patient prescribed a controlled substance at d/c from ED?: No Referrals: Frederick Zuñiga DO [Primary Care Provider] - 1-2 days
[2021-09-10 15:56] LABS: Basophils % (A) 0 %; Eosinophils # (A) 0.3 k/uL (0-0.7); Eosinophils % (A) 3 %; HCT 40.7 % (34.0-46.0); HGB 12.9 gm/dL (11.4-16.0); Lymphocytes # (A) 3.5 k/uL (1.0-4.8); Lymphocytes % (A) 29 %; MCH 28.3 pg (25.0-35.0); MCHC 31.6 g/dL (31.0-37.0); MCV 89.4 fL (80.0-100.0); Mean Platelet Volume 8.4; Monocytes # (A) 0.5 k/uL (0-1.0); Monocytes % (A) 4 %; Neutrophils # (A) 7.6 k/uL (1.3-7.7); Neutrophils % (A) 63 %; Platelet Count 328 k/uL (150-450); RBC 4.56 m/uL (3.80-5.40); RDW 13.9 % (11.5-15.5); WBC 12.1 k/uL (3.8-10.6)
[2021-09-10 16:00] LABS: ALT 20 U/L (4-34); AST 21 U/L (14-36); African American GFR (CKD) >90 (>60 ml/min/1.73 sqM); Albumin 4.8 g/dL (3.5-5.0); Alkaline Phosphatase 89 U/L (38-126); Amylase 59 U/L (30-110); Anion Gap 11 mmol/L; Blood Urea Nitrogen 11 mg/dL (7-17); Carbon Dioxide 28 mmol/L (22-30); Chloride 103 mmol/L (98-107); Glucose 110 mg/dL (74-99); Lipase 66 U/L (23-300); Non-African American GFR(CKD) 82 (>60 ml/min/1.73 sqM); Potassium 4.4 mmol/L (3.5-5.1); Sodium 142 mmol/L (137-145); Total Bilirubin 0.5 mg/dL (0.2-1.3); Total Protein 7.8 g/dL (6.3-8.2)
--- NOTE | 2021-09-10 17:00 | CT ---
EXAMINATION TYPE: CT abdomen pelvis w con DATE OF EXAM: 09/10/2021 COMPARISON: 06/13/2021 HISTORY: 65-year-old female Generalized abdominal pain. TECHNIQUE: Contiguous axial scanning of the abdomen and pelvis following administration of 100 ml Iso krysta 300 IV contrast. Delayed images through the kidneys and coronal/sagittal reconstructions perform ed. CT DLP: 1642.1 mGycm Automated exposure control for dose reduction was used. FINDINGS: Heart normal size without pericardial effusion. Some patchy peripheral opacity in the right base probably atelectasis. No pleural effusion. Liver enlarged at 18.6 cm. Mildly diminished attenuation. No focal lesion. Portal venous system is pa tent. No biliary ductal dilatation. Gallbladder, adrenal glands, spleen, pancreas show no gross abnormality. Tiny 9 mm hypodensity mid right kidney and 5 mm hypodensity anterior mid left kidney too small for ac curate CT characterization, likely small cysts. Moderate prostatic calcifications infrarenal abdominal aorta without aneurysm. No dilated small bowel, free fluid, or free air. No mesenteric or retroperitoneal lymphadenopathy. Normal appendix. There is moderate wording. No pericolonic inflammatory change. Bladder nondistended. Multiple pelvic phleboliths. Uterus surgically absent. Surgical clip in the lef t side of the pelvis. No abnormal fluid collection the pelvis or pelvic lymphadenopathy. Neither ovar y is visualized. Bones: Mild to moderate degenerative change right hip and mild at the left hip. Facet arthropathy mid to lower lumbar spine. Chronic superior endplate Schmorl's node L1. Grade 1 anterolisthesis L4-L5. IMPRESSION: 1. MILD HEPATOMEGALY (18.6 CM) WITH MILDLY DIMINISHED ATTENUATION. CORRELATE FOR HEPATIC STEATOSIS VE RSUS HEPATITIS WITH LFT's AND PATIENT RISK FACTORS. 2. MODERATE STOOL BURDEN. NORMAL APPENDIX.
[2021-09-10 17:43] VITALS: BP 161/80; PULSE 80; TEMP 98
== END 2021-09-10 17:43 | disposition home or self-care (01) ==
LOC: EC 11:11
DX: R10.31 Right lower quadrant pain (principal); R10.32 Left lower quadrant pain; G89.29 Other chronic pain; J45.909 Unspecified asthma, uncomplicated; E78.5 Hyperlipidemia, unspecified; I10 Essential (primary) hypertension; E07.9 Disorder of thyroid, unspecified; Z90.710 Acquired absence of both cervix and uterus; Z79.84 Long term (current) use of oral hypoglycemic drugs; Z88.1 Allergy status to other antibiotic agents; Z88.2 Allergy status to sulfonamides
CPT/HCPCS: 99284; 96374; 96375; 36415; 80053; 82150; 83690; 85025; 81003; 74177; J2405; J1885; Q9967

== ENCOUNTER → 2023-03-24 | Outpatient (CLI) | payer MEDICARE ==
[2023-03-24 10:07] VITALS: BP 147/84; PULSE 65; RESP 16; TEMP 98
--- NOTE | 2023-03-24 14:17 | P.PAINPG ---
PQRS Measure Charge Sheet Comment: HISTORY OF PRESENT ILLNESS: 67 yr old female as a referral from [facility] presents today w severe and chronic LBP secondary to for evaluation. Pt states pain level is provoked at 7/10 in intensity, constant, localized in the lower lubmar psine, cramping in character w shooting pain towards the BL hips and BLEs. Pain is provoked by standing, walking for periods of 20 min or more, or climbing stairs. Pain is alleviated by PT in 2018, physician guided home exercises semi weekly since 2018, heat, ice, medications (Celebrex, Flexeril), repositioning and rest. Oswestry axial pain score at 21. PMH: OA, Asthma, Hyperlipidemia, HTN, Hypothyroid Disorder PSH: Adenoidectomy, Section, Hysterectomy, Exploratory Laparotomy/ BL Oophorectomy, R Thumb/ Hand Surgery, Tonsillectomy, Temporal Biopsy SH: Negative x3 FH: Fa- CAD, IL. Mo- . All: See list Meds: See list REVIEW OF ORGAN SYSTEMS: CONSTITUTIONAL: No fevers or chills. No recent weight loss. NEUROLOGICAL: + numbness and tingling along the distal extremities. No seizure disorders or headaches. MUSCULOSKELETAL: + pain PSYCHIATRIC: Denies current depression or suicidal thoughts. Physical Examinations : Constitutional : Cooperative , not in acute distress . Neurologic : Cranial nerve II to XII intact. No focal neurological deficits. Psychiatric : alert & oriented x 3. Matching mood & appropriate affect. Judgment & insight intact. Musculoskeletal : Cervical Spine Motor strength in the deltoid and biceps: Normal right side. Normal Left side Motor strength biceps and the wrist extensors: Normal right side . Normal left side Motor strength in the triceps muscle: Normal right side. Normal left side Deep tendon reflexes: Normal at the biceps. Normal at Brachioradialis. Normal at triceps Vertebral body tenderness to deep palpation over Cervical facet loading test: positive bilaterally Spurling test: positive bilaterally Neck distraction test: positive bilaterally Brayan sign: positive bilaterally Lumbar spine Motor strength lower extremities ,thigh and legs 5/5 Right side , 5/5 Left side Deep tendon reflexes : Normal Knee Jerk. Normal Ankle Jerk Vertebral body tenderness over L4 Burdick Test positive Lumbar facet Loading Test: positive Right / positive Left Range of motion of the lumbar spine Flexion 30 degrees, extension 10 degrees Straight Leg Raise test: Left/ Right positive at 35 degrees Shiloh test: positive right / positive left. Severe tenderness over the Sacroiliac joint on the Right / Left sides Gaenslen test: positive bilaterally Seated flexion test: positive bilaterally. Sacral spine : Severe tenderness over the Sacroiliac joint: right side / left side Range of motion: Flexion of the lumbar spine <60 degrees Range of motion: Extension of the lumbar spine <20 degrees Gaenslen's Test positive Boris's Test positive Shiloh test: positive right side / left side Thigh Thrust Test Sacral Thrust Test Imaging: MRI without contrast of the lumbar spine from 02/12/23 reviewed Assessment/ Plan : Lumbar DDD Recommendation of ALEJANDRINA L4-L5 #1. May need a series of injections for optimal pain relief. Risks, benefits of procedure discussed and patient verbalized understanding. Admits to aspirin or anti- coagulant use or medical history of diabetes. Protocol for discontinuation/ continuation of medications austin procedure discussed. Minimal anesthesia provided, if clinically indicated, consisting of Versed and Fentanyl. Celebrex 200mg #60 1 RF. Use, side effects, adverse reactions and safe storage discussed. Pt verbalized understanding. All questions answered. I have spent greater than 30 minutes on patient care today. Dr Pfeiffer was avai lable by phone for the evaluation of this patient. The time was used to review the medical records including relevant urine studies and Prescription history (MAPs), review of the available imaging, evaluation and examination of the patient, coordination of care with the medical staff and if applicable referring physicians, as well as creation of the medical record PQRS Narrative: Smoking Status Former smoker Home Medications: Ambulatory Orders Levothyroxine Sodium [Synthroid] 100 mcg PO DAILY 03/10/17 amLODIPine BESYLATE/BENAZEPRIL [Lotrel 5-10 MG] 1 cap PO DAILY 03/10/17 Atorvastatin [Lipitor] 40 mg PO HS 12/21/20 Cholecalciferol [Vitamin D3 (125 Mcg = 5000 Iu)] 125 mcg PO DAILY 09/10/21 Ketorolac [Toradol] 10 mg PO Q6HR PRN 09/10/21 Ondansetron [Zofran] 4 mg PO Q8HR PRN 09/10/21 Tolterodine ER [Detrol LA] 4 mg PO DAILY 09/10/21 metFORMIN HCL ER [Glucophage XR] 500 mg PO W/SUPPER 02/14/22 Celecoxib [CeleBREX] 200 mg PO BID 30 Days #60 cap 03/24/23 Controlled Substance Measures - Controlled Substance Measures Is patient prescribed a controlled substance at discharge?: No
== END ==
LOC: PNWHC3 08:31
PROVIDERS: ATTEND Specialist
DX: M51.16 Intervertebral disc disorders with radiculopathy, lumbar region (principal); M47.26 Other spondylosis with radiculopathy, lumbar region; M48.061 Spinal stenosis, lumbar region without neurogenic claudication; M54.50 Low back pain, unspecified; M19.90 Unspecified osteoarthritis, unspecified site; J45.909 Unspecified asthma, uncomplicated; E78.5 Hyperlipidemia, unspecified; I10 Essential (primary) hypertension; E03.9 Hypothyroidism, unspecified; Z88.2 Allergy status to sulfonamides; Z79.890 Hormone replacement therapy; Z87.891 Personal history of nicotine dependence
CPT/HCPCS: 99211

== ENCOUNTER 2023-04-08 11:39 | Day surgery (SDC) | payer MEDICARE ==
[2023-04-07 13:16] VITALS: BMI 38.9
[2023-04-08] MEDS ORDERED: LACTATED RINGERS 1,000 ML IV SCH (11:56)
[2023-04-08 12:08] VITALS: TEMP 96.9
[2023-04-08 12:15] LABS: Glucose,Whole Blood 114 mg/dL (70-110)
[2023-04-08] MEDS ORDERED: methylPREDNISolone ACETATE 40 MG/ML 1 ML VIAL ONE (12:43)
[2023-04-08] MEDS ORDERED: IOPAMIDOL M200 10 ML VIAL ONE (12:43)
--- NOTE | 2023-04-08 12:50 | P.PCN ---
Date of Procedure: 04/08/23 Procedure(s) Performed: PREOPERATIVE DIAGNOSIS: 1- Lumbar Degenerative Disc Diseases 2-Lumbar spondylosis with Facet arthropathy without myelopathy. 3-lumbar spinal stenosis POSTOPERATIVE DIAGNOSIS: 1-lumbar degenerative disc disease. 2-lumbar spondylosis with facet arthropathy without myelopathy. 3-lumbar spinal stenosis. PROCEDURE 1. Lumbar epidural steroid injection under fluoroscopic guidance at the L4-5 level. (Fluoroscopy imaging was available in radiology department) 2. Lumbar epidurogram. ANESTHESIA: Lidocaine 1% 3 and then only. EBL: Minimal PROCEDURE INDICATION: The patient with low back pain and radiculitis symptoms unresponsive to conservative treatment. Fluoroscopy was used to optimize visualization of the needle placement and to maximize safety. PROCEDURE DESCRIPTION / TECHNIQUE: The patient was seen and identified in the preoperative area. Risks, benefits, complications including but not limited to infections ,bleeding ,allergic reaction to the medications ,nerve damage and not complete pain releife , and alternatives were discussed with the patient. The patient agreed to proceed with the procedure and signed the consent, and vital signs were stable. Patient was taken to the OR and time out was completed. The patient was placed in the prone position on procedure table and a pillow was placed under the abdomen to reduce lumbar lordosis. The lumbosacral area was prepped and draped in the usual sterile fashion.ere closely monitored during the procedure. Vital signs was monitered during the entire procedure. Using anterior-posterior fluoroscopy, the L4-5 interlaminar space was identified and the skin over this site was marked and then infiltrated with 1% lidocaine subcutaneously. Subsequently, a 20-gauge Tuohy epidural needle was inserted and advanced toward the epidural space using the ``Loss of resistance technique and guided by AP and lateral fluoroscopy. The correct needle position in the epidural space was verified with the injection of 2 mL of the water soluble contrast dye Isovue 200 contrast and observing an excellent epidurogram with the epidural spread of the dye, after negative aspiration for blood and CSF and in the absence of paresthesias. Again after negative aspiration, a 6 ml mixture containing 40 mg of Depo-medrol ( Preservetive Free ), and 2 ml of preservative free Normal Saline, and 2 ml of preservative free lidocaine 1% solution was injected and a washout of epidurogram was seen. Needle was withdrawn intact, skin was cleansed, and bandages were applied. COMPLICATIONS: None DISPOSITION / PLANS: The patient was placed in a supine position and transferred to the recovery area in a stable condition for observation. There was no evidence of lower extremity motor or sensory deficit after the procedure. Patient was discharged from the recovery room after meeting discharge criteria. Home discharge instructions were given to the patient by the staff. The patient was reexamined prior to discharge. The patient will schedule a follow up in the clinic in 2-4 weeks.
[2023-04-08 13:05] VITALS: BP 164/74; PULSE 66; RESP 14
--- NOTE | 2023-04-08 19:58 | FL ---
Intraoperative/procedural fluoroscopic services were provided. Total fluoroscopy time is 1.3 seconds with a total of 1 submitted images to PACS. Please see the operative/procedural note for further deta ils. DAP: 0.13627 mGym2
== END 2023-04-08 13:12 | disposition home or self-care (01) ==
LOC: ORPAIN 11:39
PROVIDERS: ATTEND Specialist
DX: M51.16 Intervertebral disc disorders with radiculopathy, lumbar region (principal); M47.26 Other spondylosis with radiculopathy, lumbar region; M48.061 Spinal stenosis, lumbar region without neurogenic claudication; E11.9 Type 2 diabetes mellitus without complications; Z88.2 Allergy status to sulfonamides
CPT/HCPCS: 62323; J1030; Q9966

== ENCOUNTER → 2023-05-26 | Outpatient (CLI) | payer MEDICARE ==
--- NOTE | 2023-05-26 11:41 | CT ---
EXAMINATION TYPE: CT lumbar spine wo con CT DLP: 1330.8 mGycm, Automated exposure control for dose reduction was used. DATE OF EXAM: 05/26/2023 10:44 AM COMPARISON: MRI lumbar spine 02/12/2023. CLINICAL INDICATION:Female, 67 years old with history of M54.50 BACK PAIN M47.26; [facility], BACK PAIN TECHNIQUE: Multiple axial images were obtained from the midportion of T11 through the sacroiliac natalie nts. Soft tissue and bone windows in coronal and sagittal planes were obtained and reviewed. FINDINGS: Alignment: There are 5 lumbar type vertebral bodies within normal alignment. Bone: No evidence of acute fracture is identified. Redemonstration of prominent Schmorl's node invol ving the superior and of L1 and Schmorl's node versus mild anterior wedge compression deformity invol ving the superior endplate of L2 again. Discs: T12-L1: No spinal canal or neural foraminal stenosis is identified. L1-L2: No spinal canal or neural foraminal stenosis is identified. L2-L3: Broad-based disc bulge with no significant central canal stenosis. The neural foramen are rose nt bilaterally. L3-L4: Broad-based disc bulge with bilateral facet arthropathy resulting in minimal central canal urszula nosis. The neural foramen are patent bilaterally. L4-L5: Broad-based disc bulge with bilateral facet arthropathy resulting in mild central canal steno sis. Minimal bilateral neural foraminal stenosis. L5-S1: No spinal canal stenosis. Bilateral facet arthropathy. Neural foraminal stenosis is identified . Other: Atherosclerotic calcification of the aorta. IMPRESSION: 1. No evidence for acute spinal fracture. 2. Redemonstration of superior endplate Schmorl's node L1 with a shallow superior endplate Schmorl's node or minimal superior endplate compression of L2. 3. Mild multilevel degenerative disc disease and facet arthropathy as described above. This is most p rominent at L4-L5.
== END | disposition home or self-care (01) ==
LOC: RADCTMAIN 09:37
PROVIDERS: ATTEND Orthopaedic Surgery
DX: M51.16 Intervertebral disc disorders with radiculopathy, lumbar region (principal); M47.27 Other spondylosis with radiculopathy, lumbosacral region; M99.73 Connective tissue and disc stenosis of intervertebral foramina of lumbar region; M51.46 Schmorl's nodes, lumbar region
CPT/HCPCS: 72131

== ENCOUNTER → 2023-06-11 | Outpatient (CLI) | payer MEDICARE ==
--- NOTE | 2023-06-11 10:55 | XR ---
EXAMINATION TYPE: XR chest 2V DATE OF EXAM: 06/11/2023 COMPARISON: 12/21/2020 INDICATION: Cough TECHNIQUE: Frontal and lateral views of the chest are obtained. FINDINGS: The heart size is normal. The pulmonary vasculature is normal. The lungs are clear. No centimeters superior endplate changes in the L1-L2 levels. These were present on the CT of 023 IMPRESSION: 1. No acute pulmonary process.
[2023-06-11 11:45] LABS: Appearance,Urine Clear (Clear); Bilirubin,Urine Negative (Negative); Blood,Urine Trace (Negative); Color,Urine Light Yellow; Glucose,Urine (UA) Negative (Negative); Ketones,Urine Negative (Negative); Leukocyte Esterase,Urine Negative (Negative); Mucus,Urine Rare /hpf; Nitrite,Urine Negative (Negative); Protein,Urine Negative (Negative); RBC,Urine 2 /hpf (0-5); Specific Gravity,Urine 1.014 (1.001-1.035); Squamous Epithelial Cell,Urine <1 /hpf (0-4); Urobilinogen,Urine <2.0 mg/dL (<2.0); WBC,Urine <1 /hpf (0-5)
[2023-06-11 16:20] LABS: HCT 37.5 % (37.2-46.3); HGB 11.8 g/dL (12.0-15.0); MCH 28.6 pg (27.0-32.0); MCHC 31.5 g/dL (32.0-37.0); Mean Platelet Volume 11.7 FL (9.5-12.2); NRBC Per 100 WBC 0 X 10*3/uL (0.00-0.01); Platelet Count 373 X 10*3/uL (140-440); RBC 4.12 X 10*6/uL (4.10-5.20); RDW 14.4 % (11.5-14.5); WBC 8.58 X 10*3/uL (4.50-10.00)
[2023-06-11 17:11] LABS: BUN/Creat Ratio 15.38 Ratio (12.00-20.00); Blood Urea Nitrogen 12.3 mg/dL (9.0-27.0); Calcium 9.7 mg/dL (8.7-10.3); Carbon Dioxide 26.9 mmol/L (21.6-31.8); Chloride 103 mmol/L (96-109); Glucose 112 mg/dL (70-110); Potassium 4.8 mmol/L (3.5-5.5); Sodium 140 mmol/L (135-145)
== END | disposition home or self-care (01) ==
LOC: LABWHC1 09:35
PROVIDERS: ATTEND Neurological Surgery
DX: Z01.811 Encounter for preprocedural respiratory examination (principal); D64.9 Anemia, unspecified; R94.31 Abnormal electrocardiogram [ECG] [EKG]; R05.9 Cough, unspecified
CPT/HCPCS: 36415; 71046; 80048; 81001; 83036; 85027; 93005

== ENCOUNTER 2023-06-26 16:57 | Emergency (ER) | payer MEDICARE ==
--- NOTE | 2023-06-26 18:17 | ED ---
General Adult HPI - General Source: patient Mode of arrival: wheelchair Limitations: no limitations <Kendrick Almeida - Last Filed: 06/26/23 18:18> - General Source: patient, family Mode of arrival: wheelchair Limitations: no limitations <Isadora Muñoz - Last Filed: 06/26/23 23:53> - General Chief complaint: Recheck/Abnormal Lab/Rx Stated complaint: LOW BP Time Seen by Provider: 06/26/23 18:18 - History of Present Illness Initial comments: 67-year-old female presenting to the ED with a chief complaint of neck pain. Patient states had a lumbar fusion of L4-L5 done by Dr. Garcia yesterday. States that she is now having neck pain. No recent injury or trauma. (Kendrick Almeida) 67-year-old female presents to the emergency department with chief complaint of hypotension. Patient states that she had a laminectomy of L4-L5 done by Dr. Garcia yesterday at [facility]. She states that she was evaluated by her home health nurse today and was found to be hypotensive at 80/53. She states that at this time she was having lightheadedness. She was advised to come to emergency department following this. She states that after arriving in the emergency department she developed severe pain at the base of her skull. She states that it feels better with applied pressure. Denies fever, chills. Denies drainage from the surgical site. (Isadora Muñoz) - Related Data Home Medications Medication Instructions Recorded Confirmed Levothyroxine Sodium [Synthroid] 100 mcg PO DAILY 03/10/17 06/26/23 amLODIPine BESYLATE/BENAZEPRIL 1 cap PO DAILY 03/10/17 06/26/23 [Lotrel 5-10 MG] Atorvastatin [Lipitor] 40 mg PO DAILY 12/21/20 06/26/23 Cholecalciferol [Vitamin D3 (125 125 mcg PO DAILY 09/10/21 06/26/23 Mcg = 5000 Iu)] metFORMIN HCL ER [Glucophage XR] 500 mg PO DAILY 09/10/21 06/26/23 Doxycycline Monohydrate 100 mg PO BID 06/26/23 06/26/23 HYDROcodone/APAP 7.5-325MG [[place] 1 tab PO Q6H PRN 06/26/23 06/26/23 7.5-325] Ibuprofen [Motrin] 600 mg PO Q6H PRN 06/26/23 06/26/23 Multivitamin/Iron/Folic Acid 1 tab PO DAILY 06/26/23 06/26/23 [Centrum Women Tablet] tiZANidine [Zanaflex] 2 mg PO Q8H PRN 06/26/23 06/26/23 Allergies Allergy/AdvReac Type Severity Reaction Status Date / Time sulfamethoxazole Allergy Rash/Hives, Verified 06/26/23 22:44 [From Bactrim] itching trimethoprim [From Bactrim] Allergy Rash/Hives, Verified 06/26/23 22:44 itching Review of Systems ROS Other: All systems not noted in ROS Statement are negative. <Kendrick Almeida - Last Filed: 06/26/23 18:18> ROS Other: All systems not noted in ROS Statement are negative. <Isadora Muñoz - Last Filed: 06/26/23 23:53> ROS Statement: Those systems with pertinent positive or pertinent negative responses have been documented in the HPI. Past Medical History Past Medical History: Asthma, Diabetes Mellitus, Hyperlipidemia, Hypertension, Thyroid Disorder Additional Past Medical History / Comment(s): migraines, varicose veins History of Any Multi-Drug Resistant Organisms: None Reported Past Surgical History: Back Surgery Additional Past Surgical History / Comment(s): Exploratory laparotomy/xiomara oophorectomy, trigger thumb-rt hand, temporal biopsy, pain clinic procedure. Past Anesthesia/Blood Transfusion Reactions: Motion Sickness Additional Past Anesthesia/Blood Transfusion Reaction / Comment(s): . Past Psychological History: No Psychological Hx Reported Smoking Status: Former smoker Past Alcohol Use History: None Reported Past Drug Use History: None Reported - Past Family History Mother Family Medical History: No Reported History Additional Family Medical History / Comment(s): Mother is . <Kendrick Almeida - Last Filed: 06/26/23 18:18> General Exam General appearance: alert Extremities exam: Present: normal inspection Back exam: Present: normal inspection Neurological exam: Present: alert <Kendrick Almeida - Last Filed: 06/26/23 18:18> Limitations: no limitations General appearance: alert, in no apparent distress Head exam: Present: atraumatic, normocephalic, normal inspection Eye exam: Present: normal appearance, PERRL, EOMI. Absent: scleral icterus, conjunctival injection, periorbital swelling Neck exam: Present: normal inspection, full ROM. Absent: tenderness, meningismus, lymphadenopathy Respiratory exam: Present: normal lung sounds bilaterally. Absent: respiratory distress, wheezes, rales, rhonchi, stridor Cardiovascular Exam: Present: regular rate, normal rhythm, normal heart sounds. Absent: systolic murmur, diastolic murmur, rubs, gallop, clicks Extremities exam: Present: normal inspection, full ROM, normal capillary refill. Absent: tenderness, pedal edema, joint swelling, calf tenderness Back exam: Present: tenderness, other (DP and PT pulses 2+) Neurological exam: Present: alert, oriented X3, CN II-XII intact Psychiatric exam: Present: normal affect, normal mood Skin exam: Present: warm, dry, intact, normal color. Absent: rash <Isadora Muñoz - Last Filed: 06/26/23 23:53> Course Vital Signs 06/26/23 06/26/23 17:20 19:22 Temperature 97.6 F Pulse Rate 70 72 Respiratory 16 18 Rate Blood Pressure 192/79 156/67 O2 Sat by Pulse 97 100 Oximetry Medical Decision Making <Kendrick Almeida - Last Filed: 06/26/23 18:18> - Lab Data Result diagrams: 06/26/23 19:22 06/26/23 19:22 <Isadora Muñoz - Last Filed: 06/26/23 23:53> - Medical Decision Making Quicknote portion performed. Signed Kendrick Almeida PA-C (Kendrick Almeida) Was pt. sent in by a medical professional or institution (JACKI Polanco, SENIOR RECRUITER, urgent care, hospital, or snf...) When possible be specific @ -No Did you speak to anyone other than the patient for history (EMS, parent, family, police, friend...)? What history was obtained from this source @ -No Did you review nursing and triage notes (agree or disagree)? Why? @ -I reviewed and agree with nursing and triage notes Were old charts reviewed (outside hosp., previous admission, EMS record, old EKG, old radiological studies, urgent care reports/EKG's, snf records)? Report findings @ -No old charts were reviewed Differential Diagnosis (chest pain, altered mental status, abdominal pain women, abdominal pain men, vaginal bleeding, weakness, fever, dyspnea, syncope, headache, dizziness, GI bleed, back pain, seizure, CVA, palpatations, mental health, musculoskeletal)? @ -Differential Back Pain: Strain, zoster, cauda equina syndrome, epidural abscess, vertebral osteomyelitis, discitis, fracture, subluxation, disc herniation, DJD, spinal stenosis, dissection, AAA, pancreatitis, peptic ulcer disease, pyelonephritis, kidney stone, this is not meant to be an all-inclusive list. EKG interpreted by me (3pts min.). @ -none X-rays interpreted by me (1pt min.). @ -None done CT interpreted by me (1pt min.). @ -CT brain and Cspine shows no acute process U/S interpreted by me (1pt. min.). @ -None done What testing was considered but not performed or refused? (CT, X-rays, U/S, labs)? Why? @ -None What meds were considered but not given or refused? Why? @ -None Did you discuss the management of the patient with other professionals (professionals i.e. , PA, SENIOR RECRUITER, lab, RT, psych nurse, public health social worker, operations processor, teacher, flight communications officer, casework supervisor)? Give summary @ -No Was smoking cessation discussed for >3mins.? @ -No Was critical care preformed (if so, how long)? @ -No Were there social determinants of health that impacted care today? How? (Homelessness, low income, unemployed, alcoholism, drug addiction, transportation, low edu. Level, literacy, decrease access to med. care, correction, rehab)? @ -No Was there de-escalation of care discussed even if they declined (Discuss DNR or withdrawal of care, Hospice)? DNR status @ -No What co-morbidities impacted this encounter? (DM, HTN, Smoking, COPD, CAD, Cancer, CVA, ARF, Chemo, Hep., AIDS, mental health diagnosis, sleep apnea, morbid obesity)? @ -None Was patient admitted / discharged? Hospital course, mention meds given and route, prescriptions, significant lab abnormalities, going to OR and other pertinent info. @ -discharged. Patient presented to the emergency department for chief complaint of hypotension following back surgery yesterday. Patient found to be hypertensive in the emergency department, repeat vital signs appropriate. Lab oratory studies showed WBC 12.7 likely reactive due to surgery, hemoglobin 11.0; otherwise unremarkable. CT brain and C-spine shows no acute process. Patient given 1 L normal saline and 15 mg Toradol which she states slightly improved her symptoms. Patient evaluated by myself and Dr. Nava. Patient will be discharged home with close follow-up to Dr. Garcia. Patient understands and agreeable with discharge plan. Patient is a potential discharge Undiagnosed new problem with uncertain prognosis? @ -No Drug Therapy requiring intensive monitoring for toxicity (Heparin, Nitro, Insulin, Cardizem)? @ -No Were any procedures done? @ -No Diagnosis/symptom? @ -headache, s/p lumbar laminectomy Acute, or Chronic, or Acute on Chronic? @ -acute Uncomplicated (without systemic symptoms) or Complicated (systemic symptoms)? @ -uncomplicated Side effects of treatment? @ -No Exacerbation, Progression, or Severe Exacerbation? @ -No Poses a threat to life or bodily function? How? (Chest pain, [place], [place], pneumonia, PE, COPD, DKA, ARF, appy, cholecystitis, CVA, Diverticulitis, Homicidal, Suicidal, threat to staff... and all critical care pts) @ -No (Isadora Muñoz) - Lab Data Lab Results 06/26/23 06/26/23 06/26/23 Range/Units 19:22 19:22 19:22 WBC 12.7 H (3.8-10.6) k/uL RBC 3.71 L (3.80-5.40) m/uL Hgb 11.0 L (11.4-16.0) gm/dL Hct 33.4 L (34.0-46.0) % MCV 89.9 (80.0-100.0) fL MCH 29.6 (25.0-35.0) pg MCHC 32.9 (31.0-37.0) g/dL RDW 14.1 (11.5-15.5) % Plt Count 301 (150-450) k/uL MPV 8.7 Neutrophils % 71 % Lymphocytes % 22 % Monocytes % 5 % Eosinophils % 1 % Basophils % 0 % Neutrophils # 9.0 H (1.3-7.7) k/uL Lymphocytes # 2.8 (1.0-4.8) k/uL Monocytes # 0.6 (0-1.0) k/uL Eosinophils # 0.1 (0-0.7) k/uL Basophils # 0.0 (0-0.2) k/uL Sodium 136 L (137-145) mmol/L Potassium 4.1 (3.5-5.1) mmol/L Chloride 100 (98-107) mmol/L Carbon Dioxide 23 (22-30) mmol/L Anion Gap 13 mmol/L BUN 23 H (7-17) mg/dL Creatinine 0.92 (0.52-1.04) mg/dL Est GFR (CKD-EPI)AfAm 75 (>60 ml/min/1.73 sqM) Est GFR (CKD-EPI)NonAf 65 (>60 ml/min/1.73 sqM) Glucose 132 H (74-99) mg/dL Plasma Lactic Acid Kiko 1.2 (0.7-2.0) mmol/L Calcium 9.9 (8.4-10.2) mg/dL Total Bilirubin 0.4 (0.2-1.3) mg/dL AST 19 (14-36) U/L ALT 22 (4-34) U/L Alkaline Phosphatase 79 (38-126) U/L Total Protein 7.0 (6.3-8.2) g/dL Albumin 4.5 (3.5-5.0) g/dL Urine Color Urine Appearance (Clear) Urine pH (5.0-8.0) Ur Specific [place] (1.001-1.035) Urine Protein (Negative) Urine Glucose (UA) (Negative) Urine Ketones (Negative) Urine Blood (Negative) Urine Nitrite (Negative) Urine Bilirubin (Negative) Urine Urobilinogen (<2.0) mg/dL Ur Leukocyte Esterase (Negative) Urine RBC (0-5) /hpf Urine WBC (0-5) /hpf Ur Squamous Epith Cells (0-4) /hpf Hyaline Casts (0-2) /lpf Urine Mucus (None) /hpf 06/26/ Range/Units 20:03 WBC (3.8-10.6) k/uL RBC (3.80-5.40) m/uL Hgb (11.4-16.0) gm/dL Hct (34.0-46.0) % MCV (80.0-100.0) fL MCH (25.0-35.0) pg MCHC (31.0-37.0) g/dL RDW (11.5-15.5) % Plt Count (150-450) k/uL MPV Neutrophils % % Lymphocytes % % Monocytes % % Eosinophils % % Basophils % % Neutrophils # (1.3-7.7) k/uL Lymphocytes # (1.0-4.8) k/uL Monocytes # (0-1.0) k/uL Eosinophils # (0-0.7) k/uL Basophils # (0-0.2) k/uL Sodium (137-145) mmol/L Potassium (3.5-5.1) mmol/L Chloride (98-107) mmol/L Carbon Dioxide (22-30) mmol/L Anion Gap mmol/L BUN (7-17) mg/dL Creatinine (0.52-1.04) mg/dL Est GFR (CKD-EPI)AfAm (>60 ml/min/1.73 sqM) Est GFR (CKD-EPI)NonAf (>60 ml/min/1.73 sqM) Glucose (74-99) mg/dL Plasma Lactic Acid Kiko (0.7-2.0) mmol/L Calcium (8.4-10.2) mg/dL Total Bilirubin (0.2-1.3) mg/dL AST (14-36) U/L ALT (4-34) U/L Alkaline Phosphatase (38-126) U/L Total Protein (6.3-8.2) g/dL Albumin (3.5-5.0) g/dL Urine Color Colorless Urine Appearance Clear (Clear) Urine pH 5.0 (5.0-8.0) Ur Specific [place] 1.013 (1.001-1.035) Urine Protein Negative (Negative) Urine Glucose (UA) Negative (Negative) Urine Ketones Negative (Negative) Urine Blood Negative (Negative) Urine Nitrite Negative (Negative) Urine Bilirubin Negative (Negative) Urine Urobilinogen <2.0 (<2.0) mg/dL Ur Leukocyte Esterase Trace H (Negative) Urine RBC 1 (0-5) /hpf Urine WBC 2 (0-5) /hpf Ur Squamous Epith Cells 4 (0-4) /hpf Hyaline Casts 1 (0-2) /lpf Urine Mucus Rare H (None) /hpf Disposition <Kendrick Almeida - Last Filed: 06/26/23 18:18> Is patient prescribed a controlled substance at d/c from ED?: No <Isadora Muñoz - Last Filed: 06/26/23 23:53> Clinical Impression: Status post laminectomy, Headache Disposition: HOME SELF-CARE Condition: Stable Additional Instructions: Please follow up with Dr. Garcia as scheduled. Return to the emergency department for new or worsening symptoms. Referrals: Frederick Zuñiga DO [Primary Care Provider] - 1-2 days
[2023-06-26] MEDS ORDERED: SODIUM CHLORIDE 0.9% 1,000 ML IV ONE (18:58)
[2023-06-26 19:33] VITALS: PULSE 72; RESP 18
[2023-06-26 19:37] LABS: Basophils % (A) 0 %; Eosinophils # (A) 0.1 k/uL (0-0.7); Eosinophils % (A) 1 %; HCT 33.4 % (34.0-46.0); Lymphocytes # (A) 2.8 k/uL (1.0-4.8); Lymphocytes % (A) 22 %; MCH 29.6 pg (25.0-35.0); MCHC 32.9 g/dL (31.0-37.0); MCV 89.9 fL (80.0-100.0); Mean Platelet Volume 8.7; Monocytes # (A) 0.6 k/uL (0-1.0); Monocytes % (A) 5 %; Neutrophils % (A) 71 %; Platelet Count 301 k/uL (150-450); RBC 3.71 m/uL (3.80-5.40); RDW 14.1 % (11.5-15.5); WBC 12.7 k/uL (3.8-10.6)
[2023-06-26 19:49] LABS: ALT 22 U/L (4-34); AST 19 U/L (14-36); African American GFR (CKD) 75 (>60 ml/min/1.73 sqM); Albumin 4.5 g/dL (3.5-5.0); Alkaline Phosphatase 79 U/L (38-126); Anion Gap 13 mmol/L; Blood Urea Nitrogen 23 mg/dL (7-17); Calcium 9.9 mg/dL (8.4-10.2); Carbon Dioxide 23 mmol/L (22-30); Chloride 100 mmol/L (98-107); Glucose 132 mg/dL (74-99); Non-African American GFR(CKD) 65 (>60 ml/min/1.73 sqM); Potassium 4.1 mmol/L (3.5-5.1); Sodium 136 mmol/L (137-145); Total Bilirubin 0.4 mg/dL (0.2-1.3)
[2023-06-26 20:52] LABS: Appearance,Urine Clear (Clear); Bilirubin,Urine Negative (Negative); Blood,Urine Negative (Negative); Color,Urine Colorless; Glucose,Urine (UA) Negative (Negative); Hyaline Casts,Urine 1 /lpf (0-2); Ketones,Urine Negative (Negative); Leukocyte Esterase,Urine Trace (Negative); Mucus,Urine Rare /hpf; Nitrite,Urine Negative (Negative); Protein,Urine Negative (Negative); RBC,Urine 1 /hpf (0-5); Specific Gravity,Urine 1.013 (1.001-1.035); Squamous Epithelial Cell,Urine 4 /hpf (0-4); Urobilinogen,Urine <2.0 mg/dL (<2.0); WBC,Urine 2 /hpf (0-5)
--- NOTE | 2023-06-26 21:13 | CT ---
EXAMINATION TYPE: CT brain cspine wo con: 06/26/2023 HISTORY: Back Sx yesterday, Pt is in a lot of pain and has hypotension now. TECHNIQUE: CT scan of the head and cervical spine are performed without contrast. CT DLP: 1514.4 mGycm. Automated Exposure Control for Dose Reduction was Utilized. COMPARISON: 06/27/2021 FINDINGS: There is no acute intracranial hemorrhage, mass effect, or midline shift identified. The v entricles and sulci are within normal limits in size. The globes are intact and the visualized sinuse s are clear. Cervical spine is visualized in its entirety from C1 through upper thoracic levels and demonstrates s atisfactory alignment without evidence of acute fracture or dislocation. Prevertebral soft tissue fede ears within normal limits. The C1-C2 articulation is unremarkable. IMPRESSION: 1. There is no acute fracture or dislocation evident in the cervical spine. 2. No acute intracranial hemorrhage, mass effect, or midline shift is seen.
[2023-06-26] MEDS ORDERED: KETOROLAC 15 MG/ML 1 ML VIAL IVP STA (21:14)
[2023-06-26 23:04] VITALS: BP 131/77; TEMP 98.2
== END 2023-06-26 23:10 | disposition home or self-care (01) ==
LOC: EC 16:57
DX: M96.1 Postlaminectomy syndrome, not elsewhere classified (principal); R51.9 Headache, unspecified; J45.909 Unspecified asthma, uncomplicated; E11.9 Type 2 diabetes mellitus without complications; E78.5 Hyperlipidemia, unspecified; I10 Essential (primary) hypertension; E07.9 Disorder of thyroid, unspecified; Z79.84 Long term (current) use of oral hypoglycemic drugs; Z79.899 Other long term (current) drug therapy; Z79.890 Hormone replacement therapy; Z87.891 Personal history of nicotine dependence; Z88.2 Allergy status to sulfonamides; Z88.8 Allergy status to other drugs, medicaments and biological substances
CPT/HCPCS: 36415; 93005; 80053; 83605; 85025; 81001; 72125; 70450; 99284; 96374; 96361 ×4; J1885

== ENCOUNTER → 2023-08-25 | Outpatient (CLI) | payer MEDICARE ==
--- NOTE | 2023-08-25 14:49 | XR ---
EXAMINATION TYPE: XR lumbar spine 2 or 3V DATE OF EXAM: 08/25/2023 CLINICAL HISTORY: pain TECHNIQUE: Three views of the lumbar spine are submitted. COMPARISON: 09/29/2018 FINDINGS: There are 5 lumbar type vertebral bodies identified. The lumbar spine shows satisfactory alignment w ithout evidence of acute fracture or dislocation. Vertebral body heights are within normal limits. Moderate multilevel degenerative disc space narrowing seen. Chronic loss of height involving L1. The overlying soft tissue appears unremarkable. IMPRESSION: No acute fracture or dislocation is seen in the lumbar spine. ICD 10 NO FRACTURE, INITIAL EVALUATION
== END | disposition home or self-care (01) ==
LOC: RADXRMAIN 14:20
PROVIDERS: ATTEND Neurological Surgery
DX: M51.36 Other intervertebral disc degeneration, lumbar region (principal); Z98.1 Arthrodesis status
CPT/HCPCS: 72100

== ENCOUNTER → 2024-01-27 | Outpatient (CLI) | payer MEDICARE ==
--- NOTE | 2024-01-27 11:10 | XR ---
EXAMINATION TYPE: XR chest 2V DATE OF EXAM: 01/27/2024 COMPARISON: 06/11/2023 HISTORY: 68-year-old female R05.9, cough TECHNIQUE: Frontal and lateral views FINDINGS: Heart normal size. Aorta and pulmonary vasculature are within normal limits. No consolidation or pleu ral effusion. IMPRESSION: No acute cardiopulmonary process.
== END | disposition home or self-care (01) ==
LOC: RADXRMAIN 10:12
PROVIDERS: ATTEND Otolaryngology
DX: R05.9 Cough, unspecified (principal)
CPT/HCPCS: 71046

== ENCOUNTER 2024-08-21 18:56 | Emergency (ER) | payer MEDICARE ==
[2024-08-21 19:09] VITALS: TEMP 98
--- NOTE | 2024-08-21 19:42 | ED ---
General Adult HPI - General Chief complaint: Weakness Stated complaint: hot dizzy feet and hands tingling weak Time Seen by Provider: 08/21/24 19:12 Source: patient, family, RN notes reviewed Mode of arrival: wheelchair Limitations: no limitations - History of Present Illness Initial comments: 68-year-old female presents to the emergency department for evaluation of elevated blood pressure readings, flushing, palpitations. Patient reports that she was at a friend's house when she started to feel flushed and generally weak. She states that her friend encouraged her to take her blood pressure which was elevated at around 210/110. She denies any significant chest pain. Admits to slight shortness of breath. Denies recent fever, chills. She states that she was recently treated for urinary tract infection for 3 days with Cipro which she completed on Friday. - Related Data Home Medications Medication Instructions Recorded Confirmed Levothyroxine Sodium [Synthroid] 100 mcg PO DAILY 03/10/17 06/26/23 amLODIPine BESYLATE/BENAZEPRIL 1 cap PO DAILY 03/10/17 06/26/23 [Lotrel 5-10 MG] Atorvastatin [Lipitor] 40 mg PO DAILY 12/21/20 06/26/23 Cholecalciferol [Vitamin D3 (125 125 mcg PO DAILY 09/10/21 06/26/23 Mcg = 5000 Iu)] metFORMIN HCL ER [Glucophage XR] 500 mg PO DAILY 09/10/21 06/26/23 Doxycycline Monohydrate 100 mg PO BID 06/26/23 06/26/23 HYDROcodone/APAP 7.5-325MG [[place] 1 tab PO Q6H PRN 06/26/23 06/26/23 7.5-325] Ibuprofen [Motrin] 600 mg PO Q6H PRN 06/26/23 06/26/23 Multivitamin/Iron/Folic Acid 1 tab PO DAILY 06/26/23 06/26/23 [Centrum Women Tablet] tiZANidine [Zanaflex] 2 mg PO Q8H PRN 06/26/23 06/26/23 Allergies Allergy/AdvReac Type Severity Reaction Status Date / Time sulfamethoxazole Allergy Rash/Hives, Verified 08/21/24 19:05 [From Bactrim] itching trimethoprim [From Bactrim] Allergy Rash/Hives, Verified 08/21/24 19:05 itching Review of Systems ROS Statement: Those systems with pertinent positive or pertinent negative responses have been documented in the HPI. ROS Other: All systems not noted in ROS Statement are negative. Past Medical History Past Medical History: Asthma, Diabetes Mellitus, Hyperlipidemia, Hypertension, Thyroid Disorder Additional Past Medical History / Comment(s): migraines, varicose veins History of Any Multi-Drug Resistant Organisms: None Reported Past Surgical History: Back Surgery Additional Past Surgical History / Comment(s): Exploratory laparotomy/xiomara oophorectomy, trigger thumb-rt hand, temporal biopsy, pain clinic procedure. Past Anesthesia/Blood Transfusion Reactions: Motion Sickness Additional Past Anesthesia/Blood Transfusion Reaction / Comment(s): . Past Psychological History: No Psychological Hx Reported Smoking Status: Former smoker Past Alcohol Use History: None Reported Past Drug Use History: None Reported - Past Family History Mother Family Medical History: No Reported History Additional Family Medical History / Comment(s): Mother is . General Exam Limitations: no limitations General appearance: alert, in no apparent distress Head exam: Present: atraumatic, normocephalic, normal inspection Eye exam: Present: normal appearance, PERRL, EOMI. Absent: scleral icterus, conjunctival injection, periorbital swelling ENT exam: Present: normal exam, mucous membranes moist Neck exam: Present: normal inspection. Absent: tenderness, meningismus, lymphadenopathy Respiratory exam: Present: normal lung sounds bilaterally. Absent: respiratory distress, wheezes, rales, rhonchi, stridor Cardiovascular Exam: Present: regular rate, normal rhythm, normal heart sounds. Absent: systolic murmur, diastolic murmur, rubs, gallop, clicks GI/Abdominal exam: Present: soft. Absent: distended, tenderness, guarding, rebound, rigid Extremities exam: Present: normal inspection, full ROM, normal capillary refill. Absent: tenderness, pedal edema, joint swelling, calf tenderness Neurological exam: Present: alert, oriented X3 Psychiatric exam: Present: normal affect, normal mood Skin exam: Present: warm, dry, intact, normal color. Absent: rash Course Vital Signs 08/21/24 08/21/24 08/21/24 19:05 19:21 20:26 Temperature 98 F Pulse Rate 127 H 111 H 96 Respiratory 20 18 17 Rate Blood Pressure 206/104 161/139 156/89 O2 Sat by Pulse 98 98 97 Oximetry 08/21/24 21:00 Temperature Pulse Rate 96 Respiratory 16 Rate Blood Pressure 148/82 O2 Sat by Pulse 97 Oximetry Medical Decision Making - Medical Decision Making Was pt. sent in by a medical professional or institution (JACKI Polanco, SENIOR CREDIT OFFICER, urgent care, hospital, or fpc...) When possible be specific @ -[No] Did you speak to anyone other than the patient for history (EMS, parent, family, police, friend...)? What history was obtained from this source @ -[No] Did you review nursing and triage notes (agree or disagree)? Why? @ -[I reviewed and agree with nursing and triage notes] Were old charts reviewed (outside hosp., previous admission, EMS record, old EKG, old radiological studies, urgent care reports/EKG's, fpc records)? Report findings @ -[No old charts were reviewed] Differential Diagnosis (chest pain, altered mental status, abdominal pain women, abdominal pain men, vaginal bleeding, weakness, fever, dyspnea, syncope, headache, dizziness, GI bleed, back pain, seizure, CVA, palpatations, mental health, musculoskeletal)? @ -[not applicable] EKG interpreted by me (3pts min.). @ -EKG at 1945 shows sinus tachycardia rate 103, IN 154, QRS 83, QTQTc [id number] X-rays interpreted by me (1pt min.). @ -[Chest x-ray shows no acute process] CT interpreted by me (1pt min.). @ -[None done] U/S interpreted by me (1pt. min.). @ -[None done] What testing was considered but not performed or refused? (CT, X-rays, U/S, labs)? Why? @ -[None] What meds were considered but not given or refused? Why? @ -[None] Did you discuss the management of the patient with other professionals (professionals i.e. JACKI Polanco, SENIOR CREDIT OFFICER, lab, RT, psych nurse, neonatal social worker, market development executive, teacher, industrial relations officer, casework manager)? Give summary @ -[No] Was smoking cessation discussed for >3mins.? @ -[No] Was critical care preformed (if so, how long)? @ -[No] Were there social determinants of health that impacted care today? How? (Homelessness, low income, unemployed, alcoholism, drug addiction, transportation, low edu. Level, literacy, decrease access to med. care, snf, rehab)? @ -[No] Was there de-escalation of care discussed even if they declined (Discuss DNR or withdrawal of care, Hospice)? DNR status @ -[No] What co-morbidities impacted this encounter? (DM, HTN, Smoking, COPD, CAD, Cancer, CVA, ARF, Chemo, Hep., AIDS, mental health diagnosis, sleep apnea, morbid obesity)? @ -[None] Was patient admitted / discharged? Hospital course, mention meds given and route, prescriptions, significant lab abnormalities, going to OR and other pertinent info. @ -[hospital course] Undiagnosed new problem with uncertain prognosis? @ -[No] Drug Therapy requiring intensive monitoring for toxicity (Heparin, Nitro, Insulin, Cardizem)? @ -[No] Were any procedures done? @ -[No] Diagnosis/symptom? @ -[default] Acute, or Chronic, or Acute on Chronic? @ -[default] Uncomplicated (without systemic symptoms) or Complicated (systemic symptoms)? @ -[default] Side effects of treatment? @ -[No] Exacerbation, Progression, or Severe Exacerbation? @ -[No] Poses a threat to life or bodily function? How? (Chest pain, [place], [place], pneumonia, PE, COPD, DKA, ARF, appy, cholecystitis, CVA, Diverticulitis, Homicidal, Suicidal, threat to staff... and all critical care pts) @ -[No] - Lab Data Result diagrams: 08/21/24 19:56 08/21/24 19:56 Lab Results 08/21/24 08/21/24 08/21/24 Range/Units 19:56 19:56 19:56 WBC 15.1 H (3.8-10.6) k/uL RBC 4.36 (3.80-5.40) m/uL Hgb 12.8 (11.4-16.0) gm/dL Hct 38.2 (34.0-46.0) % MCV 87.5 (80.0-100.0) fL MCH 29.4 (25.0-35.0) pg MCHC 33.6 (31.0-37.0) g/dL RDW 14.1 (11.5-15.5) % Plt Count 378 (150-450) k/uL MPV 8.1 Neutrophils % 70 % Lymphocytes % 23 % Monocytes % 4 % Eosinophils % 2 % Basophils % 1 % Neutrophils # 10.5 H (1.3-7.7) k/uL Lymphocytes # 3.5 (1.0-4.8) k/uL Monocytes # 0.6 (0-1.0) k/uL Eosinophils # 0.3 (0-0.7) k/uL Basophils # 0.1 (0-0.2) k/uL PT 10.3 (10.0-12.5) sec INR 0.9 (<1.2) APTT 22.6 (22.0-30.0) sec Sodium 138 (137-145) mmol/L Potassium 3.6 (3.5-5.1) mmol/L Chloride 100 (98-107) mmol/L Carbon Dioxide 26 (22-30) mmol/L Anion Gap 12 mmol/L BUN 14 (7-17) mg/dL Creatinine 0.78 (0.52-1.04) mg/dL Est GFR (CKD-EPI)AfAm >90 (>60 ml/min/1.73 sqM) Est GFR (CKD-EPI)NonAf 79 (>60 ml/min/1.73 sqM) Glucose 167 H (74-99) mg/dL Calcium 10.1 (8.4-10.2) mg/dL Magnesium 1.7 (1.6-2.3) mg/dL Total Bilirubin 0.5 (0.2-1.3) mg/dL AST 30 (14-36) U/L ALT 38 H (4-34) U/L Alkaline Phosphatase 119 (38-126) U/L Troponin I (0.000-0.034) ng/mL Total Protein 7.6 (6.3-8.2) g/dL Albumin 4.8 (3.5-5.0) g/dL Urine Color Urine Appearance (Clear) Urine pH (5.0-8.0) Ur Specific [place] (1.001-1.035) Urine Protein (Negative) Urine Glucose (UA) (Negative) Urine Ketones (Negative) Urine Blood (Negative) Urine Nitrite (Negative) Urine Bilirubin (Negative) Urine Urobilinogen (<2.0) mg/dL Ur Leukocyte Esterase (Negative) Urine RBC (0-5) /hpf Urine WBC (0-5) /hpf Ur Squamous Epith Cells (0-4) /hpf Calcium Oxalate Crystal (None) /hpf Amorphous Sediment (None) /hpf Urine Mucus (None) /hpf 08/21/24 08/21/24 08/21/24 Range/Units 19:56 20:26 21:45 WBC (3.8-10.6) k/uL RBC (3.80-5.40) m/uL Hgb (11.4-16.0) gm/dL Hct (34.0-46.0) % MCV (80.0-100.0) fL MCH (25.0-35.0) pg MCHC (31.0-37.0) g/dL RDW (11.5-15.5) % Plt Count (150-450) k/uL MPV Neutrophils % % Lymphocytes % % Monocytes % % Eosinophils % % Basophils % % Neutrophils # (1.3-7.7) k/uL Lymphocytes # (1.0-4.8) k/uL Monocytes # (0-1.0) k/uL Eosinophils # (0-0.7) k/uL Basophils # (0-0.2) k/uL PT (10.0-12.5) sec INR (<1.2) APTT (22.0-30.0) sec Sodium (137-145) mmol/L Potassium (3.5-5.1) mmol/L Chloride (98-107) mmol/L Carbon Dioxide (22-30) mmol/L Anion Gap mmol/L BUN (7-17) mg/dL Creatinine (0.52-1.04) mg/dL Est GFR (CKD-EPI)AfAm (>60 ml/min/1.73 sqM) Est GFR (CKD-EPI)NonAf (>60 ml/min/1.73 sqM) Glucose (74-99) mg/dL Calcium (8.4-10.2) mg/dL Magnesium (1.6-2.3) mg/dL Total Bilirubin (0.2-1.3) mg/dL AST (14-36) U/L ALT (4-34) U/L Alkaline Phosphatase (38-126) U/L Troponin I <0.012 <0.012 (0.000-0.034) ng/mL Total Protein (6.3-8.2) g/dL Albumin (3.5-5.0) g/dL Urine Color Light Yellow Urine Appearance Clear (Clear) Urine pH 6.0 (5.0-8.0) Ur Specific [place] 1.017 (1.001-1.035) Urine Protein Trace H (Negative) Urine Glucose (UA) Negative (Negative) Urine Ketones Negative (Negative) Urine Blood Small H (Negative) Urine Nitrite Negative (Negative) Urine Bilirubin Negative (Negative) Urine Urobilinogen <2.0 (<2.0) mg/dL Ur Leukocyte Esterase Negative (Negative) Urine RBC 10 H (0-5) /hpf Urine WBC 1 (0-5) /hpf Ur Squamous Epith Cells <1 (0-4) /hpf Calcium Oxalate Crystal Few H (None) /hpf Amorphous Sediment Rare H (None) /hpf Urine Mucus Occasional H (None) /hpf Disposition Clinical Impression: Elevated blood pressure reading Disposition: HOME SELF-CARE Condition: Stable Additional Instructions: Please follow up with your primary care provider as scheduled. Return to the emergency department for new or worsening symptoms. Is patient prescribed a controlled substance at d/c from ED?: No Referrals: Evangelina Bruce MD [Primary Care Provider] - 1-2 days
[2024-08-21 20:14] LABS: Basophils # (A) 0.1 k/uL (0-0.2); Basophils % (A) 1 %; Eosinophils # (A) 0.3 k/uL (0-0.7); Eosinophils % (A) 2 %; HCT 38.2 % (34.0-46.0); HGB 12.8 gm/dL (11.4-16.0); Lymphocytes # (A) 3.5 k/uL (1.0-4.8); Lymphocytes % (A) 23 %; MCH 29.4 pg (25.0-35.0); MCHC 33.6 g/dL (31.0-37.0); MCV 87.5 fL (80.0-100.0); Mean Platelet Volume 8.1; Monocytes # (A) 0.6 k/uL (0-1.0); Monocytes % (A) 4 %; Neutrophils # (A) 10.5 k/uL (1.3-7.7); Neutrophils % (A) 70 %; Platelet Count 378 k/uL (150-450); RBC 4.36 m/uL (3.80-5.40); RDW 14.1 % (11.5-15.5); WBC 15.1 k/uL (3.8-10.6)
[2024-08-21] MEDS: ONDANSETRON 4 MG/2 ML VIAL IVP STA (20:22)
--- NOTE | 2024-08-21 20:22 | XR ---
EXAMINATION TYPE: XR chest 2V DATE OF EXAM: 08/21/2024 8:18 PM COMPARISON: Previous chest radiograph 01/27/2024. CLINICAL INDICATION: Female, 68 years old with history of Weakness; H TECHNIQUE: XR chest 2V Frontal and lateral views of the chest. FINDINGS: Lungs/Pleura: There is no evidence of pleural effusion, focal consolidation, or pneumothorax. Pulmonary vascularity: Unremarkable. Heart/mediastinum: Cardiomediastinal silhouette is unremarkable. Musculoskeletal: No acute osseous pathology. Other findings: None IMPRESSION: No acute cardiopulmonary disease/process. [facility], , 08/21/2024 8:20 PM
[2024-08-21 20:29] LABS: INR 0.9 (<1.2); Partial Thromboplastin Time 22.6 sec (22.0-30.0); Prothrombin Time 10.3 sec (10.0-12.5)
[2024-08-21 20:30] LABS: ALT 38 U/L (4-34); AST 30 U/L (14-36); African American GFR (CKD) >90 (>60 ml/min/1.73 sqM); Albumin 4.8 g/dL (3.5-5.0); Alkaline Phosphatase 119 U/L (38-126); Anion Gap 12 mmol/L; Blood Urea Nitrogen 14 mg/dL (7-17); Calcium 10.1 mg/dL (8.4-10.2); Carbon Dioxide 26 mmol/L (22-30); Chloride 100 mmol/L (98-107); Glucose 167 mg/dL (74-99); Magnesium 1.7 mg/dL (1.6-2.3); Non-African American GFR(CKD) 79 (>60 ml/min/1.73 sqM); Potassium 3.6 mmol/L (3.5-5.1); Sodium 138 mmol/L (137-145); Total Bilirubin 0.5 mg/dL (0.2-1.3); Total Protein 7.6 g/dL (6.3-8.2)
[2024-08-21 20:59] LABS: Amorphous Sediment,Urine Rare /hpf; Appearance,Urine Clear (Clear); Bilirubin,Urine Negative (Negative); Blood,Urine Small (Negative); Calcium Oxalate Crystals,Urine Few /hpf; Color,Urine Light Yellow; Glucose,Urine (UA) Negative (Negative); Ketones,Urine Negative (Negative); Leukocyte Esterase,Urine Negative (Negative); Mucus,Urine Occasional /hpf; Nitrite,Urine Negative (Negative); Protein,Urine Trace (Negative); RBC,Urine 10 /hpf (0-5); Specific Gravity,Urine 1.017 (1.001-1.035); Squamous Epithelial Cell,Urine <1 /hpf (0-4); Urobilinogen,Urine <2.0 mg/dL (<2.0); WBC,Urine 1 /hpf (0-5)
[2024-08-21] MEDS: SODIUM CHLORIDE 0.9% 1,000 ML IV ONE (21:15)
[2024-08-21 23:07] VITALS: RESP 15
[2024-08-21 23:08] VITALS: BP 138/90; PULSE 74
== END 2024-08-21 23:07 | disposition home or self-care (01) ==
LOC: EC 18:56
DX: R03.0 Elevated blood-pressure reading, without diagnosis of hypertension (principal); Z87.891 Personal history of nicotine dependence; Z88.2 Allergy status to sulfonamides; Z88.8 Allergy status to other drugs, medicaments and biological substances
CPT/HCPCS: 36415; 93005; 80053; 83735; 84484; 85025; 85610; 85730; 81001; 71046; 99285; 96374; 96361; J2405

== ENCOUNTER → 2024-10-27 | Outpatient (CLI) | payer MEDICARE ==
--- NOTE | 2024-10-27 14:55 | US ---
EXAMINATION TYPE: US kidneys/renal and bladder DATE OF EXAM: 10/27/2024 COMPARISON: CT 09/10/2021 CLINICAL INDICATION: Female, 69 years old with history of R109 UNSPECIFIED ABDOMINAL PAIN; Intersista l Cystitis, Hx Hydrodistention TECHNIQUE: Grayscale imaging of the bilateral kidneys and urinary bladder: FINDINGS: EXAM MEASUREMENTS: Right Kidney: 11.6 x 5.3 x 4.9 cm. Left Kidney: 11.5 x 6.0 x 5.3 cm. Post Void Residual Volume: NA mL. Right Kidney: wnl, no evidence for hydronephrosis, mass or renal calculus. Left Kidney: wnl, no evidence for hydronephrosis, mass or renal calculus. Bladder: wnl Bilateral Jets seen: Yes Normal Post Void Residual: NA There is no evidence for hydronephrosis at this point in time. No nephrolithiasis is seen. No alfredo s are identified. The urinary bladder is anechoic. IMPRESSION: No evidence for acute process. [facility], , 10/27/2024 2:52 PM
== END | disposition home or self-care (01) ==
LOC: RADUSWWP 14:13
PROVIDERS: ATTEND Urology
DX: R10.9 Unspecified abdominal pain (principal); H30.90 Unspecified chorioretinal inflammation, unspecified eye
CPT/HCPCS: 76770

== ENCOUNTER → 2024-10-30 | Outpatient (CLI) | payer MEDICARE ==
[2024-10-30 13:51] LABS: BUN/Creat Ratio 13.22 Ratio (12.00-20.00); Blood Urea Nitrogen 11.9 mg/dL (9.0-27.0); Calcium 9.8 mg/dL (8.7-10.3); Carbon Dioxide 20.4 mmol/L (21.6-31.8); Chloride 105 mmol/L (96-109); Glucose 160 mg/dL (70-110); Potassium 4.3 mmol/L (3.5-5.5); Sodium 140 mmol/L (135-145)
[2024-10-30 14:02] LABS: Basophils # (A) 0.01 X 10*3/uL (0.00-0.10); Basophils % (A) 0.1 %; Eosinophils # (A) 0.09 X 10*3/uL (0.04-0.35); Eosinophils % (A) 1.2 %; HCT 39.6 % (37.2-46.3); HGB 12.3 g/dL (12.0-15.0); Lymphocytes # (A) 2.57 X 10*3/uL (0.90-5.00); Lymphocytes % (A) 33.4 %; MCH 28.3 pg (27.0-32.0); MCHC 31.1 g/dL (32.0-37.0); MCV 91.2 FL (80.0-97.0); Mean Platelet Volume 11.7 FL (9.5-12.2); Monocytes # (A) 0.32 X 10*3/uL (0.20-1.00); Monocytes % (A) 4.2 %; NRBC Per 100 WBC 0 X 10*3/uL (0.00-0.01); Neutrophils # (A) 4.67 X 10*3/uL (1.80-7.70); Neutrophils % (A) 60.6 %; Platelet Count 296 X 10*3/uL (140-440); RBC 4.34 X 10*6/uL (4.10-5.20); RDW 14.7 % (11.5-14.5)
== END | disposition home or self-care (01) ==
LOC: LABWHC1 09:34
PROVIDERS: ATTEND Urology
DX: Z01.812 Encounter for preprocedural laboratory examination (principal); N30.10 Interstitial cystitis (chronic) without hematuria
CPT/HCPCS: 36415; 80048; 85025

== ENCOUNTER → 2024-12-10 | Outpatient (CLI) | payer MEDICARE ==
--- NOTE | 2024-12-10 15:49 | CT ---
EXAMINATION TYPE: CT abdomen pelvis wo con CT DLP: 1053.6 mGycm, Automated exposure control for dose reduction was used. DATE OF EXAM: 12/10/2024 2:51 PM COMPARISON: CT abdomen pelvis 09/10/2021, 06/13/2021, renal ultrasound 10/27/2024 CLINICAL INDICATION:Female, 69 years old with history of R31.0 GROSS HEMATURIA; Left flank pain runni ng down into pelvis. TECHNIQUE: Standard CT of the abdomen and pelvis without IV or oral contrast. Lack of IV or oral co ntrast limits evaluation of solid and hollow organ viscera. Coronal and sagittal reformats were perfo rmed. FINDINGS: LOWER CHEST: Unremarkable noncontrast appearance ABDOMEN LIVER: Unremarkable noncontrast appearance GALLBLADDER AND BILE DUCTS: Unremarkable noncontrast appearance PANCREAS: Fatty infiltration of the pancreatic head and uncinate process. No parenchymal calcificatio ns are suspicious lesions. No surrounding inflammatory changes or fluid collections. SPLEEN: Unremarkable noncontrast appearance ADRENAL GLANDS: Unremarkable noncontrast appearance. KIDNEYS AND URETERS: No evidence of hydronephrosis or renal calculus. No ureteral calculus or hydrour eter identified. No perinephric or periureteral fat stranding identified. PELVIS BLADDER: Incompletely distended but grossly unremarkable. REPRODUCTIVE: The uterus is surgically absent. ABDOMEN & PELVIS STOMACH AND BOWEL: Stomach and duodenum are unremarkable. The appendix is within normal limits. No fo ely bowel wall thickening or surrounding inflammatory changes. Submucosal fat deposition within the a scending colon. No evidence of bowel obstruction. PERITONEUM: No evidence of pneumoperitoneum or free fluid. VASCULATURE: Moderate atherosclerotic calcifications are present throughout the abdominal aorta and i ts branches. No evidence of aortic aneurysm. Multiple pelvic phleboliths. MUSCULOSKELETAL: No acute osseous abnormalities. Postsurgical changes with laminectomy defects at L4- L5. Prominent superior endplate Schmorl's node involving the L1 and L2 vertebral bodies. LYMPH NODES: No gross evidence for lymphadenopathy. SOFT TISSUE/ABDOMINAL WALL: Unremarkable IMPRESSION: No CT evidence for acute abdominal/pelvic process within the limitations of a noncontrast exam. No ev idence for obstructive uropathy or renal calculi. [facility], , 12/10/2024 3:47 PM
== END | disposition home or self-care (01) ==
LOC: RADCTMAIN 14:16
PROVIDERS: ATTEND Urology
DX: R31.0 Gross hematuria (principal)
CPT/HCPCS: 74176